=== PATIENT | female | born 1990 | race American Indian/Alaskan Native ===

== ENCOUNTER 2016-08-16 12:01 | Emergency (ER) | payer MEDICAID ==
[2016-08-16 12:48] VITALS: BP 115/75
[2016-08-16] MEDS ORDERED: TORADOL IM ONE (12:56)
[2016-08-16] MEDS ORDERED: FLEXERIL PO ONE (12:56)
--- NOTE | 2016-08-16 13:02 | Emergency Department Report ---
ED General Adult HPI - General Chief complaint: Extremity Problem,Nontraumatic Stated complaint: LT SHOULDER PAIN Time Seen by Provider: 08/16/16 12:51 Source: patient Mode of arrival: Ambulatory Limitations: No Limitations - History of Present Illness Initial comments: PT c/o L shoulder pain. PT states she can not think of a specific injury, but she does have two small children and she lifts/ carries them frequently. PT states her mother told her that her shoulder was dislocated. PT states the pain started gradually last night and was worse this am. PT states she took some Tylenol last night at 2230. PT states she does not know if this helped her pain because shortly after, she went to sleep. MD Complaint: L shoulder pain -: Gradual, days(s) (1) Location: upper extremity (L shoulder ) Severity scale (0 -10): 10 Quality: constant Consistency: constant Improves with: rest Worsens with: movement Associated Symptoms: denies other symptoms. denies: chest pain, fever/chills, headaches, nausea/vomiting, shortness of breath Treatments Prior to Arrival: none - Related Data Home Medications Medication Instructions Recorded Confirmed Last Taken Omeprazole [PriLOSEC] 20 mg PO BID 03/15/15 03/15/15 03/14/15 15:30 Previous Rx's Medication Instructions Recorded Last Taken Type Ferrous Sulfate [Feosol 325 MG tab] 325 mg PO BID #90 tablet 03/30/14 03/14/15 15:30 Rx Ondansetron [Zofran Odt] 4 mg PO Q8HR #10 tab.rapdis 02/13/15 03/15/15 08:00 Rx Diphenhydramine HCl [Benadryl 25 mg PO Q6HR PRN #30 tablet 03/15/15 Unknown Rx Allergy TAB] Loratadine [Claritin] 10 mg PO DAILY #30 tablet 03/15/15 Unknown Rx Ibuprofen [Motrin] 600 mg PO Q8H PRN #15 tablet 08/16/16 Unknown Rx methOCARBAMOL [Robaxin TAB] 500 mg PO Q6H PRN #15 tablet 08/16/16 Unknown Rx Allergies Allergy/AdvReac Type Severity Reaction Status Date / Time terbutaline sulfate AdvReac Vomiting Verified 03/15/15 10:03 [From Jacey] ED Review of Systems ROS: Stated complaint: LT SHOULDER PAIN Other details as noted in HPI Comment: All other systems reviewed and negative Constitutional: denies: chills, fever Respiratory: denies: shortness of breath Cardiovascular: denies: chest pain Gastrointestinal: denies: abdominal pain Genitourinary: denies: abnormal menses Musculoskeletal: as per HPI, joint swelling, myalgia Skin: denies: change in color Neurological: denies: weakness ED Past Medical Hx - Past Medical History Previous Medical History?: Yes Hx Hypertension: No Hx Congestive Heart Failure: No Hx Diabetes: No Hx Deep Vein Thrombosis: No Hx Renal Disease: No Hx Sickle Cell Disease: No Hx Seizures: No Hx Asthma: No Hx COPD: No Hx HIV: No Additional medical history: lupus - Surgical History Past Surgical History?: No - Social History Smoking Status: Current Every Day Smoker Substance Use Type: Alcohol - Medications Home Medications: Home Medications Medication Instructions Recorded Confirmed Last Taken Type Ferrous Sulfate [Feosol 325 MG tab] 325 mg PO BID #90 tablet 03/30/14 03/15/15 03/14/15 15:30 Rx Ondansetron [Zofran Odt] 4 mg PO Q8HR #10 tab.rapdis 02/13/15 03/15/15 03/15/15 08:00 Rx Diphenhydramine HCl [Benadryl 25 mg PO Q6HR PRN #30 tablet 03/15/15 Unknown Rx Allergy TAB] Loratadine [Claritin] 10 mg PO DAILY #30 tablet 03/15/15 Unknown Rx Omeprazole [PriLOSEC] 20 mg PO BID 03/15/15 03/15/15 03/14/15 15:30 History Ibuprofen [Motrin] 600 mg PO Q8H PRN #15 tablet 08/16/16 Unknown Rx methOCARBAMOL [Robaxin TAB] 500 mg PO Q6H PRN #15 tablet 08/16/16 Unknown Rx ED Physical Exam - General Limitations: No Limitations General appearance: alert, in no apparent distress - Head Head exam: Present: atraumatic, normocephalic - Eye Eye exam: Present: normal appearance, PERRL. Absent: conjunctival injection - ENT ENT exam: Present: normal exam - Neck Neck exam: Present: normal inspection, tenderness, full ROM, other (L trapezious tenderness ). Absent: lymphadenopathy - Respiratory Respiratory exam: Present: normal lung sounds bilaterally. Absent: respiratory distress, wheezes, rales, rhonchi, chest wall tenderness - Cardiovascular Cardiovascular Exam: Present: regular rate, normal rhythm, normal heart sounds - GI/Abdominal GI/Abdominal exam: Present: soft. Absent: tenderness - Extremities Exam Extremities exam: Present: normal inspection, tenderness, normal capillary refill. Absent: full ROM - Expanded Upper Extremity Exam Left Shoulder Exam: Present: normal inspection, tenderness. Absent: full ROM, swelling, ecchymosis, deformity, crepidus Upper Arm exam: Present: normal inspection, tenderness. Absent: swelling Elbow exam: Present: normal inspection, full ROM. Absent: tenderness Forearm Wrist exam: Present: normal inspection, full ROM Hand Wrist exam: Present: normal inspection, full ROM - Back Exam Back exam: Present: normal inspection, full ROM. Absent: tenderness, CVA tenderness (R), CVA tenderness (L), muscle spasm, paraspinal tenderness, vertebral tenderness - Neurological Exam Neurological exam: Present: alert, oriented X3, CN II-XII intact, normal gait - Psychiatric Psychiatric exam: Present: normal affect, normal mood - Skin Skin exam: Present: warm, dry, intact, normal color. Absent: rash, ecchymosis ED Course Vital Signs 08/16/16 12:42 Temperature 98.8 F Pulse Rate 88 Respiratory 18 Rate Blood Pressure 115/75 O2 Sat by Pulse 99 Oximetry - Reevaluation(s) Reevaluation #1: 08/16/16 14:15 PT aware of XR result. PT aware of plan of care. PT's Rom has increased after pain control. - Pulse Oximetry Interpretation Digit-Finger Initial Pulse Oximetry Readin Actions Taken: none ED Medical Decision Making - Lab Data Lab Results 08/16/16 Range/Units 13:05 Urine HCG, Qual Negative (Negative) - Radiology Data Radiology results: report reviewed XR shoulder, nap - Differential Diagnosis strain, tendonitis, brusitis Critical Care Time: No Critical care attestation.: If time is entered above; I have spent that time in minutes in the direct care of this critically ill patient, excluding procedure time. ED Disposition Clinical Impression: Muscle spasm Left shoulder pain Qualifiers: Chronicity: acute Qualified Code(s): M25.512 - Pain in left shoulder Disposition: DISCHARGED TO HOME OR SELFCARE Is pt being admited?: No Does the pt Need Aspirin: No Condition: Stable Instructions: Shoulder Sprain (ED) Additional Instructions: Do not wear sling longer than [address] or drink ETOH after Robaxin Prescriptions: Ibuprofen [Motrin] 600 mg PO Q8H PRN #15 tablet PRN Reason: Pain methOCARBAMOL [Robaxin TAB] 500 mg PO Q6H PRN #15 tablet PRN Reason: Muscle Spasm Referrals: PRIMARY CARE, [Primary Care Provider] - 3-5 Days Time of Disposition: 14:19
--- NOTE | 2016-08-16 13:59 | XRay Report ---
Left shoulder 3 views: History: Pain. Findings: No bony or articular abnormality. No fracture, dislocation or soft tissue calcification. Impression: Essentially negative left shoulder.
== END 2016-08-16 14:41 | disposition home or self-care (01) ==
LOC: ED 12:01
DX: M25.512 Pain in left shoulder (principal); M62.838 Other muscle spasm; F17.200 Nicotine dependence, unspecified, uncomplicated; Z88.8 Allergy status to other drugs, medicaments and biological substances
CPT/HCPCS: 73030; 81025; 96372; 99284; J1885

== ENCOUNTER 2016-12-08 08:39 | Emergency (ER) | payer MEDICAID ==
[2016-12-08 09:24] LABS: Basophils % (Auto) 1.2 % (0.0-1.8); Eosinophils % (Auto) 2.5 % (0.0-4.3); Hematocrit 33.5 % (30.3-42.9); Hemoglobin 10.6 gm/dl (10.1-14.3); Mean Corpuscular HGB Conc 32 % (30-34); Mean Corpuscular Volume 76 fl (79-97); Platelet Count 271 K/mm3 (140-440); Red Blood Count 4.39 M/mm3 (3.65-5.03); Red Cell Distribution Width 16.8 % (13.2-15.2); White Blood Count 4.8 K/mm3 (4.5-11.0)
[2016-12-08 09:31] LABS: Bacteria,Urine 1+ /HPF (Negative); Bilirubin,Urine NEG (Negative); Blood,Urine LG (Negative); Ketones,Urine NEG (Negative); Leukocyte Esterase,Urine TR (Negative); Mucus,Urine FEW /HPF; Nitrite,Urine NEG (Negative); Protein,Urine <15 mg/dL mg/dL (Negative); Urobilinogen,Urine < 2.0 mg/dL (<2.0)
[2016-12-08 09:33] LABS: Mean Corpuscular Hemoglobin 24 pg (28-32)
[2016-12-08 09:35] LABS: Alanine Aminotransferase 23 units/L (7-56); Albumin 3.9 g/dL (3.9-5); Alkaline Phosphatase 56 units/L (35-129); BUN/Creatinine Ratio 11.11; Bilirubin,Total < 0.20 mg/dL (0.1-1.2); Blood Urea Nitrogen 10 mg/dL (7-17); Calcium 9.4 mg/dL (8.4-10.2); Carbon Dioxide 24 mmol/L (22-30); Glucose 98 mg/dL (65-100); Total Protein 7.7 g/dL (6.3-8.2)
[2016-12-08 09:36] LABS: Anion Gap 17 mmol/L; Chloride 100.8 mmol/L (98-107); Potassium 4.3 mmol/L (3.6-5.0); Sodium 137 mmol/L (137-145)
--- NOTE | 2016-12-08 10:20 | Emergency Department Report ---
ED Female HPI - General Chief complaint: Vaginal Bleeding Stated complaint: 4-6 WKS PREG/BLEEDING Time Seen by Provider: 12/08/16 10:16 Source: patient Mode of arrival: Ambulatory Limitations: No Limitations - History of Present Illness Initial comments: Patient complains of generalized malaise over the past few days. She's had some vaginal spotting but no significant bleeding. She is not complaining of any abdominal pain or any symptoms. She is 6 right ear 0 with 3 live children. She states she is approximately 6 weeks . She has not been to an OB doctor yet. I have reviewed the patient's previous blood bank records. She has a positive. She is not a candidate for RhoGAM. Complaint: vaginal bleeding -: Gradual, days(s) Severity: mild, moderate Consistency: now resolved Improves with: none Worsens with: none Are you Now?: Yes Associated Symptoms: denies other symptoms (except spotting), vaginal bleeding - Related Data Home Medications Medication Instructions Recorded Confirmed Last Taken Omeprazole [PriLOSEC] 20 mg PO BID 03/15/15 03/15/15 03/14/15 15:30 Previous Rx's Medication Instructions Recorded Last Taken Type Ferrous Sulfate [Feosol 325 MG tab] 325 mg PO BID #90 tablet 03/30/14 03/14/15 15:30 Rx Ondansetron [Zofran Odt] 4 mg PO Q8HR #10 tab.rapdis 02/13/15 03/15/15 08:00 Rx Diphenhydramine HCl [Benadryl 25 mg PO Q6HR PRN #30 tablet 03/15/15 Unknown Rx Allergy TAB] Loratadine [Claritin] 10 mg PO DAILY #30 tablet 03/15/15 Unknown Rx Ibuprofen [Motrin] 600 mg PO Q8H PRN #15 tablet 08/16/16 Unknown Rx methOCARBAMOL [Robaxin TAB] 500 mg PO Q6H PRN #15 tablet 08/16/16 Unknown Rx HYDROcodone/APAP 5-325 [[place] 1 each PO Q4HR PRN #10 tablet 12/08/16 Unknown Rx 5/325] Allergies Allergy/AdvReac Type Severity Reaction Status Date / Time terbutaline sulfate AdvReac Vomiting Verified 03/15/15 10:03 [From Jacey] ED Review of Systems ROS: Stated complaint: 4-6 WKS PREG/BLEEDING Other details as noted in HPI Constitutional: malaise. denies: chills, fever Eyes: denies: eye pain, eye discharge, vision change ENT: denies: ear pain, throat pain Respiratory: denies: cough, shortness of breath, wheezing Cardiovascular: denies: chest pain, palpitations Endocrine: no symptoms reported Gastrointestinal: denies: abdominal pain, nausea, diarrhea Genitourinary: as per HPI, other. denies: urgency, dysuria, discharge Musculoskeletal: denies: back pain, joint swelling, arthralgia Skin: denies: rash, lesions Neurological: denies: headache, weakness, paresthesias Psychiatric: denies: anxiety, depression Hematological/Lymphatic: denies: easy bleeding, easy bruising ED Past Medical Hx - Past Medical History Previous Medical History?: No Hx Hypertension: No Hx Congestive Heart Failure: No Hx Diabetes: No Hx Deep Vein Thrombosis: No Hx Renal Disease: No Hx Sickle Cell Disease: No Hx Seizures: No Hx Asthma: No Hx COPD: No Hx HIV: No Additional medical history: lupus - Social History Smoking Status: Former Smoker Substance Use Type: None - Medications Home Medications: Home Medications Medication Instructions Recorded Confirmed Last Taken Type Ferrous Sulfate [Feosol 325 MG tab] 325 mg PO BID #90 tablet 03/30/14 03/15/15 03/14/15 15:30 Rx Ondansetron [Zofran Odt] 4 mg PO Q8HR #10 tab.rapdis 02/13/15 03/15/15 03/15/15 08:00 Rx Diphenhydramine HCl [Benadryl 25 mg PO Q6HR PRN #30 tablet 03/15/15 Unknown Rx Allergy TAB] Loratadine [Claritin] 10 mg PO DAILY #30 tablet 03/15/15 Unknown Rx Omeprazole [PriLOSEC] 20 mg PO BID 03/15/15 03/15/15 03/14/15 15:30 History Ibuprofen [Motrin] 600 mg PO Q8H PRN #15 tablet 08/16/16 Unknown Rx methOCARBAMOL [Robaxin TAB] 500 mg PO Q6H PRN #15 tablet 08/16/16 Unknown Rx HYDROcodone/APAP 5-325 [[place] 1 each PO Q4HR PRN #10 tablet 08/13/17 Unknown Rx 5/325] ED Physical Exam - General Limitations: No Limitations General appearance: alert, in no apparent distress - Head Head exam: Present: atraumatic, normocephalic - Eye Eye exam: Present: normal appearance, PERRL, EOMI. Absent: scleral icterus - ENT ENT exam: Present: mucous membranes moist - Neck Neck exam: Present: normal inspection - Respiratory Respiratory exam: Present: normal lung sounds bilaterally. Absent: respiratory distress - Cardiovascular Cardiovascular Exam: Present: regular rate, normal rhythm. Absent: systolic murmur, diastolic murmur, rubs, gallop - GI/Abdominal GI/Abdominal exam: Present: soft, normal bowel sounds. Absent: distended, tenderness, guarding, rebound, rigid - Extremities Exam Extremities exam: Present: normal inspection - Back Exam Back exam: Present: normal inspection - Neurological Exam Neurological exam: Present: alert, oriented X3, CN II-XII intact. Absent: motor sensory deficit - Psychiatric Psychiatric exam: Present: normal affect, normal mood - Skin Skin exam: Present: warm, dry, intact, normal color. Absent: rash ED Course Vital Signs 12/08/16 08:49 Temperature 98.1 F Pulse Rate 82 Respiratory 18 Rate Blood Pressure 117/79 O2 Sat by Pulse 100 Oximetry ED Medical Decision Making - Lab Data Result diagrams: 12/08/16 08:57 12/08/16 08:57 Laboratory Results - last 24 hr 12/08/16 12/08/16 12/08/16 08:57 08:57 08:57 WBC 4.8 RBC 4.39 Hgb 10.6 Hct 33.5 MCV 76 L MCH 24 L MCHC 32 RDW 16.8 H Plt Count 271 Lymph % (Auto) 43.8 H [place] % (Auto) 8.6 H Eos % (Auto) 2.5 Baso % (Auto) 1.2 Lymph # 2.1 [place] # 0.4 Eos # 0.1 Baso # 0.1 Seg Neutrophils % 43.9 Seg Neutrophils # 2.1 Sodium Potassium Chloride Carbon Dioxide Anion Gap BUN Creatinine Estimated GFR BUN/Creatinine Ratio Glucose Calcium Total Bilirubin AST ALT Alkaline Phosphatase Total Protein Albumin Albumin/Globulin Ratio HCG, Qual Positive HCG, Quant 1035 H Urine Color Urine Turbidity Urine pH Ur Specific [place] Urine Protein Urine Glucose (UA) Urine Ketones Urine Blood Urine Nitrite Urine Bilirubin Urine Urobilinogen Ur Leukocyte Esterase Urine WBC (Auto) Urine RBC (Auto) U Epithel Cells (Auto) Urine Bacteria (Auto) Urine Mucus 12/08/16 12/08/16 08:57 09:04 WBC RBC Hgb Hct MCV MCH MCHC RDW Plt Count Lymph % (Auto) [place] % (Auto) Eos % (Auto) Baso % (Auto) Lymph # [place] # Eos # Baso # Seg Neutrophils % Seg Neutrophils # Sodium 137 Potassium 4.3 Chloride 100.8 Carbon Dioxide 24 Anion Gap 17 BUN 10 Creatinine 0.9 Estimated GFR > 60 BUN/Creatinine Ratio 11.11 Glucose 98 Calcium 9.4 Total Bilirubin < 0.20 AST 33 ALT 23 Alkaline Phosphatase 56 Total Protein 7.7 Albumin 3.9 Albumin/Globulin Ratio 1.0 HCG, Qual HCG, Quant Urine Color Yellow Urine Turbidity Clear Urine pH 5.0 Ur Specific [place] 1.021 Urine Protein <15 mg/dl Urine Glucose (UA) Neg Urine Ketones Neg Urine Blood Lg Urine Nitrite Neg Urine Bilirubin Neg Urine Urobilinogen < 2.0 Ur Leukocyte Esterase Tr Urine WBC (Auto) 2.0 Urine RBC (Auto) 21.0 U Epithel Cells (Auto) 6.0 Urine Bacteria (Auto) 1+ Urine Mucus Few - Radiology Data interpreted by me: Dr. Serrano called the radiology report to me. Indicated a 5-6 week demise no other abnormal findings. Critical care attestation.: If time is entered above; I have spent that time in minutes in the direct care of this critically ill patient, excluding procedure time. ED Disposition Clinical Impression: demise Disposition: DC-01 TO HOME OR SELFCARE Is pt being admited?: No Does the pt Need Aspirin: No Condition: Stable Instructions: Spontaneous Miscarriage (ED) Additional Instructions: Usually, the uterus well empty itself. There will be additional bleeding and passage of the which did not develop. Sometimes it may be necessary to scrape out the uterus. However that is not common. Follow-up with OB physician. Rx as needed for pain. Return as needed any significant bleeding or pain or acute change or problem. If you do not already have an email designer I have referred due to one. Prescriptions: HYDROcodone/APAP 5-325 [[place] 5/325] 1 each PO Q4HR PRN #10 tablet PRN Reason: Pain Referrals: PRIMARY CARE,MD [Primary Care Provider] - 3-5 Days usual, [facility] [Other] - 2-3 Days ALEX CHAWLA MD [Staff Physician] - 3-5 Days Time of Disposition: 11:19
--- NOTE | 2016-12-08 10:52 | Ultrasound Report ---
Pelvic and transvaginal sonography: History: Vaginal bleeding. Findings: Uterus measures 9.5 x 5.2 x 6.5 cm. Single intrauterine gestational sac is noted. Gestational sac diameter is 7.7 mm corresponding to 6 weeks and 2 days of gestation. CRL of fetus is 4.9 mm corresponding to 5 weeks and 4 days of gestation. No cardiac activity is seen. Right ovary 2.6 x 2.4 x 2.7 cm. Complex cyst in the right ovary measures 2 cm. Left ovary 2.9-1.5 x 2.1 cm. No mass. Impression: Intrauterine demise. Complex cyst right ovary.
[2016-12-08 14:32] VITALS: BP 111/65
== END 2016-12-08 12:00 | disposition home or self-care (01) ==
LOC: ED 08:39
DX: O36.4XX0 Maternal care for intrauterine death, not applicable or unspecified (principal); Z3A.01 Less than 8 weeks gestation of pregnancy; Z87.891 Personal history of nicotine dependence; Z88.2 Allergy status to sulfonamides
CPT/HCPCS: 36415; 76801; 76817; 80053; 81001; 84702; 84703; 85025

== ENCOUNTER 2017-01-02 10:01 | Emergency (ER) | payer MEDICAID ==
[2017-01-02 11:25] VITALS: BP 106/75
--- NOTE | 2017-01-02 12:34 | Emergency Department Report ---
ED General Adult HPI - General Chief complaint: Medical Clearance Stated complaint: POSSIBLE Time Seen by Provider: 01/02/17 12:02 Source: patient Mode of arrival: Ambulatory Limitations: No Limitations - History of Present Illness Initial comments: pt presents for positive home test, pt denies symptoms no fever no chills no abdominal pain no vaginal discharge, no concern for STI, LMP 1 month ago, has follow up appoint [facility] next week. Severity scale (0 -10): 0 - Related Data Home Medications Medication Instructions Recorded Confirmed Last Taken Omeprazole [PriLOSEC] 20 mg PO BID 03/15/15 03/15/15 03/14/15 15:30 Previous Rx's Medication Instructions Recorded Last Taken Type Ferrous Sulfate [Feosol 325 MG tab] 325 mg PO BID #90 tablet 03/30/14 03/14/15 15:30 Rx Ondansetron [Zofran Odt] 4 mg PO Q8HR #10 tab.rapdis 02/13/15 03/15/15 08:00 Rx Diphenhydramine HCl [Benadryl 25 mg PO Q6HR PRN #30 tablet 03/15/15 Unknown Rx Allergy TAB] Loratadine [Claritin] 10 mg PO DAILY #30 tablet 03/15/15 Unknown Rx Ibuprofen [Motrin] 600 mg PO Q8H PRN #15 tablet 08/16/16 Unknown Rx methOCARBAMOL [Robaxin TAB] 500 mg PO Q6H PRN #15 tablet 08/16/16 Unknown Rx HYDROcodone/APAP 5-325 [[place] 1 each PO Q4HR PRN #10 tablet 12/08/16 Unknown Rx 5/325] Allergies Allergy/AdvReac Type Severity Reaction Status Date / Time terbutaline sulfate AdvReac Vomiting Verified 03/15/15 10:03 [From Jacey] ED Review of Systems ROS: Stated complaint: POSSIBLE Other details as noted in HPI Constitutional: denies: chills, fever Eyes: denies: eye pain, eye discharge, vision change ENT: denies: ear pain, throat pain Respiratory: denies: cough, shortness of breath, wheezing Cardiovascular: denies: chest pain, palpitations Endocrine: no symptoms reported Gastrointestinal: denies: abdominal pain, nausea, diarrhea Genitourinary: denies: urgency, dysuria, discharge Musculoskeletal: denies: back pain, joint swelling, arthralgia Skin: denies: rash, lesions Neurological: denies: headache, weakness, paresthesias Psychiatric: denies: anxiety, depression Hematological/Lymphatic: denies: easy bleeding, easy bruising ED Past Medical Hx - Past Medical History Previous Medical History?: Yes Hx Hypertension: No Hx Congestive Heart Failure: No Hx Diabetes: No Hx Deep Vein Thrombosis: No Hx Renal Disease: No Hx Sickle Cell Disease: No Hx Seizures: No Hx Asthma: No Hx COPD: No Hx HIV: No Additional medical history: lupus dx 2015 - Surgical History Past Surgical History?: No - Social History Smoking Status: Current Some Day Smoker Substance Use Type: None, Alcohol - Medications Home Medications: Home Medications Medication Instructions Recorded Confirmed Last Taken Type Ferrous Sulfate [Feosol 325 MG tab] 325 mg PO BID #90 tablet 03/30/14 03/15/15 03/14/15 15:30 Rx Ondansetron [Zofran Odt] 4 mg PO Q8HR #10 tab.rapdis 02/13/15 03/15/15 03/15/15 08:00 Rx Diphenhydramine HCl [Benadryl 25 mg PO Q6HR PRN #30 tablet 03/15/15 Unknown Rx Allergy TAB] Loratadine [Claritin] 10 mg PO DAILY #30 tablet 03/15/15 Unknown Rx Omeprazole [PriLOSEC] 20 mg PO BID 03/15/15 03/15/15 03/14/15 15:30 History Ibuprofen [Motrin] 600 mg PO Q8H PRN #15 tablet 08/16/16 Unknown Rx methOCARBAMOL [Robaxin TAB] 500 mg PO Q6H PRN #15 tablet 08/16/16 Unknown Rx HYDROcodone/APAP 5-325 [[place] 1 each PO Q4HR PRN #10 tablet 12/08/16 Unknown Rx 5/325] ED Physical Exam - General Limitations: No Limitations General appearance: alert - Head Head exam: Present: atraumatic, normocephalic - Eye Eye exam: Present: normal appearance - ENT ENT exam: Present: mucous membranes moist - Neck Neck exam: Present: normal inspection - Respiratory Respiratory exam: Present: normal lung sounds bilaterally. Absent: respiratory distress - Cardiovascular Cardiovascular Exam: Present: regular rate, normal rhythm. Absent: systolic murmur, diastolic murmur, rubs, gallop - GI/Abdominal GI/Abdominal exam: Present: soft, normal bowel sounds - Rectal Rectal exam: Present: deferred - Extremities Exam Extremities exam: Present: normal inspection - Back Exam Back exam: Present: normal inspection - Neurological Exam Neurological exam: Present: alert, oriented X3 - Psychiatric Psychiatric exam: Present: normal affect, normal mood - Skin Skin exam: Present: warm, dry, intact, normal color. Absent: rash ED Course Vital Signs 01/02/17 11:19 Temperature 98.6 F Pulse Rate 74 Respiratory 16 Rate Blood Pressure 106/75 O2 Sat by Pulse 100 Oximetry ED Medical Decision Making - Lab Data Laboratory Tests 01/02/17 11:41 HCG, Qual Positive - Medical Decision Making pt presents for positive home test, pt denies symptoms no fever no chills no abdominal pain no vaginal discharge, no concern for STI, LMP 1 month ago, has follow up appoint [facility] Vandana Lee [employer] next week, exam: pt is a/ o x 3 with nad , defers vaginal exam , STI screening, pt defers to [employer] will see in 3 days. plan: dc to self as pt is a/o x 3 and demonstrates decision making capacity, will follow up as scheduled with manager development. Critical care attestation.: If time is entered above; I have spent that time in minutes in the direct care of this critically ill patient, excluding procedure time. ED Disposition Clinical Impression: Positive urine test Disposition: DC-01 TO HOME OR SELFCARE Is pt being admited?: No Does the pt Need Aspirin: No Condition: Good Instructions: (ED) Additional Instructions: follow up with Robert TANNER as scheduled Referrals: PRIMARY CARE, [Primary Care Provider] - 3-5 Days Forms: Work/School Release Form(ED) Time of Disposition: 12:37
== END 2017-01-02 13:03 | disposition home or self-care (01) ==
LOC: ED 10:01
DX: Z32.01 Encounter for pregnancy test, result positive (principal); Z88.2 Allergy status to sulfonamides; Z72.0 Tobacco use
CPT/HCPCS: 36415; 84703; 99282

== ENCOUNTER 2017-01-17 14:38 | Emergency (ER) | payer SELFPAY ==
[2017-01-17 14:52] VITALS: BP 91/53
[2017-01-17 15:10] LABS: Eosinophils % (Auto) 1.9 % (0.0-4.3); Hematocrit 31.5 % (30.3-42.9); Hemoglobin 10.3 gm/dl (10.1-14.3); Mean Corpuscular HGB Conc 33 % (30-34); Mean Corpuscular Volume 76 fl (79-97); Platelet Count 247 K/mm3 (140-440); Red Blood Count 4.14 M/mm3 (3.65-5.03); Red Cell Distribution Width 16.6 % (13.2-15.2); White Blood Count 4.2 K/mm3 (4.5-11.0)
[2017-01-17 15:11] LABS: Mean Corpuscular Hemoglobin 25 pg (28-32)
--- NOTE | 2017-01-17 18:57 | Emergency Department Report ---
ED Female HPI - General Chief complaint: Vaginal Bleeding Stated complaint: POSS MISSCARRIAGE WKS? Time Seen by Provider: 01/17/17 17:11 Source: patient, EMS Mode of arrival: Stretcher Limitations: No Limitations - History of Present Illness Initial comments: Patient states her last normal period was in September. She fell that she was in October. She had a miscarriage in November. She is now and started bleeding again today. She states that she has 3 live children. She's had at least these 2 other S carriages but states every time I get "this happens". Complaint: vaginal bleeding -: Gradual Severity: mild, moderate Consistency: now resolved Improves with: none Worsens with: none Are you Now?: Yes Associated Symptoms: denies other symptoms - Related Data Home Medications Medication Instructions Recorded Confirmed Last Taken Omeprazole [PriLOSEC] 20 mg PO BID 03/15/15 03/15/15 03/14/15 15:30 Previous Rx's Medication Instructions Recorded Last Taken Type Ferrous Sulfate [Feosol 325 MG tab] 325 mg PO BID #90 tablet 03/30/14 03/14/15 15:30 Rx Ondansetron [Zofran Odt] 4 mg PO Q8HR #10 tab.rapdis 02/13/15 03/15/15 08:00 Rx Diphenhydramine HCl [Benadryl 25 mg PO Q6HR PRN #30 tablet 03/15/15 Unknown Rx Allergy TAB] Loratadine [Claritin] 10 mg PO DAILY #30 tablet 03/15/15 Unknown Rx Ibuprofen [Motrin] 600 mg PO Q8H PRN #15 tablet 08/16/16 Unknown Rx methOCARBAMOL [Robaxin TAB] 500 mg PO Q6H PRN #15 tablet 08/16/16 Unknown Rx HYDROcodone/APAP 5-325 [[place] 1 each PO Q4HR PRN #10 tablet 12/08/16 Unknown Rx 5/325] Pnv with Ca,No.72/Iron,Carb/FA 1 each PO QDAY #30 tablet 01/17/17 Unknown Rx [ Plus Iron Tablet] Allergies Allergy/AdvReac Type Severity Reaction Status Date / Time tramadol Allergy Shortness Verified 01/17/17 14:42 of Breath terbutaline sulfate AdvReac Vomiting Verified 03/15/15 10:03 [From [facility]] ED Review of Systems ROS: Stated complaint: POSS MISSCARRIAGE WKS? Other details as noted in HPI Constitutional: denies: chills, fever Eyes: denies: eye pain, eye discharge, vision change ENT: denies: ear pain, throat pain Respiratory: denies: cough, shortness of breath, wheezing Cardiovascular: denies: chest pain, palpitations Endocrine: no symptoms reported Gastrointestinal: denies: abdominal pain, nausea, diarrhea Genitourinary: as per HPI, abnormal menses. denies: urgency, dysuria, discharge Musculoskeletal: denies: back pain, joint swelling, arthralgia Skin: denies: rash, lesions Neurological: denies: headache, weakness, paresthesias Psychiatric: denies: anxiety, depression Hematological/Lymphatic: denies: easy bleeding, easy bruising ED Past Medical Hx - Past Medical History Hx Hypertension: No Hx Congestive Heart Failure: No Hx Diabetes: No Hx Deep Vein Thrombosis: No Hx Renal Disease: No Hx Sickle Cell Disease: No Hx Seizures: No Hx Asthma: No Hx COPD: No Hx HIV: No Additional medical history: lupus dx 2015 - Social History Smoking Status: Current Every Day Smoker Substance Use Type: None - Medications Home Medications: Home Medications Medication Instructions Recorded Confirmed Last Taken Type Ferrous Sulfate [Feosol 325 MG tab] 325 mg PO BID #90 tablet 03/30/14 03/15/15 03/14/15 15:30 Rx Ondansetron [Zofran Odt] 4 mg PO Q8HR #10 tab.rapdis 02/13/15 03/15/15 03/15/15 08:00 Rx Diphenhydramine HCl [Benadryl 25 mg PO Q6HR PRN #30 tablet 03/15/15 Unknown Rx Allergy TAB] Loratadine [Claritin] 10 mg PO DAILY #30 tablet 03/15/15 Unknown Rx Omeprazole [PriLOSEC] 20 mg PO BID 03/15/15 03/15/15 03/14/15 15:30 History Ibuprofen [Motrin] 600 mg PO Q8H PRN #15 tablet 08/16/16 Unknown Rx methOCARBAMOL [Robaxin TAB] 500 mg PO Q6H PRN #15 tablet 08/16/16 Unknown Rx HYDROcodone/APAP 5-325 [[place] 1 each PO Q4HR PRN #10 tablet 12/08/16 Unknown Rx 5/325] Pnv with Ca,No.72/Iron,Carb/FA 1 each PO QDAY #30 tablet 01/17/17 Unknown Rx [ Plus Iron Tablet] ED Physical Exam - General Limitations: No Limitations General appearance: alert, in no apparent distress - Head Head exam: Present: atraumatic, normocephalic - Eye Eye exam: Present: normal appearance. Absent: scleral icterus - ENT ENT exam: Present: mucous membranes moist - Neck Neck exam: Present: normal inspection. Absent: tenderness, meningismus - Respiratory Respiratory exam: Present: normal lung sounds bilaterally. Absent: respiratory distress - Cardiovascular Cardiovascular Exam: Present: regular rate, normal rhythm. Absent: systolic murmur, diastolic murmur, rubs, gallop - GI/Abdominal GI/Abdominal exam: Present: soft, normal bowel sounds. Absent: distended, tenderness, guarding, rebound, rigid - Extremities Exam Extremities exam: Present: normal inspection - Back Exam Back exam: Present: normal inspection - Neurological Exam Neurological exam: Present: alert, oriented X3, CN II-XII intact. Absent: motor sensory deficit - Psychiatric Psychiatric exam: Present: normal affect, normal mood - Skin Skin exam: Present: warm, dry, intact, normal color. Absent: rash ED Course Vital Signs 01/17/17 01/17/17 14:42 18:34 Temperature 98.2 F Pulse Rate 78 Respiratory 18 16 Rate Blood Pressure 91/53 O2 Sat by Pulse 99 Oximetry - Reevaluation(s) Reevaluation #1: Blood type is A+. Patient informed of the need for OB follow-up. 01/17/17 19:37 ED Medical Decision Making - Lab Data Result diagrams: 01/17/17 14:54 - Radiology Data interpreted by me: Six-week intrauterine heart rate was 98 with small subchorionic bleed Critical care attestation.: If time is entered above; I have spent that time in minutes in the direct care of this critically ill patient, excluding procedure time. ED Disposition Clinical Impression: Threatened miscarriage Anemia Qualifiers: Anemia type: iron deficiency Iron deficiency anemia type: unspecified iron deficiency Qualified Code(s): D50.9 - Iron deficiency anemia, unspecified Disposition: DC-01 TO HOME OR SELFCARE Is pt being admited?: No Does the pt Need Aspirin: No Condition: Stable Instructions: Threatened Miscarriage (ED), Iron Rich Diet (ED), Anemia (ED) Additional Instructions: Follow-up with OB doctor. Return any acute change or problems. Prescriptions: Pnv with Ca,No.72/Iron,Carb/FA [ Plus Iron Tablet] 1 each PO QDAY #30 tablet Referrals: PRIMARY CAREMD [Primary Care Provider] - 3-5 Days KT MCLEAN MD [Staff Physician] - 3-5 Days Time of Disposition: 19:39
--- NOTE | 2017-01-17 20:05 | Ultrasound Report ---
FINAL REPORT EXAM: US OB TRANSVAGINAL HISTORY: preganant, bleeding TECHNIQUE: Ultrasound obstetrical transvaginal PRIORS: None. FINDINGS: There is gestational sac present within the uterus. Mean sac diameter 1.4 centimeters There is pole present with crown-rump length of 2.0 millimeters. Estimated gestational age 6 weeks 0 days with estimated date of delivery September 12, 2017 A yolk sac is identified Minimal free fluid noted in the cul-de-sac Adjacent to the gestational sac there is a hypoechoic focus 3.7 x 1.0 x 3.8 centimeters consistent with a large subchorionic hemorrhage cardiac activity present with heart rate of 90 beats per minute Right ovary is 4.0 x 2.5 x 2.7 centimeters. 2.2 centimeter right ovarian cyst is present. Left ovary is 3.4 x 1.5 x 1.5 centimeters. No abnormal adnexal mass identified IMPRESSION: Single live intrauterine gestation estimated at 6 weeks 0 days Large subchorionic hemorrhage identified
--- NOTE | 2017-01-17 20:06 | Ultrasound Report ---
FINAL REPORT EXAM: US OB \T\lt; = 14 WEEKS FETUS HISTORY: preganant, bleeding TECHNIQUE: Ultrasound obstetrical transabdominal PRIORS: None. FINDINGS: There is gestational sac present within the uterus. Mean sac diameter 1.4 centimeters There is pole present with crown-rump length of 2.0 millimeters. Estimated gestational age 6 weeks 0 days with estimated date of delivery September 12, 2017 A yolk sac is identified Minimal free fluid noted in the cul-de-sac Adjacent to the gestational sac there is a hypoechoic focus 3.7 x 1.0 x 3.8 centimeters consistent with a large subchorionic hemorrhage cardiac activity present with heart rate of 90 beats per minute Right ovary is 4.0 x 2.5 x 2.7 centimeters. 2.2 centimeter right ovarian cyst is present. Left ovary is 3.4 x 1.5 x 1.5 centimeters. No abnormal adnexal mass identified IMPRESSION: Single live intrauterine gestation estimated at 6 weeks 0 days Large subchorionic hemorrhage identified
== END 2017-01-17 19:55 | disposition home or self-care (01) ==
LOC: ED 14:38
DX: O20.0 Threatened abortion (principal); D50.9 Iron deficiency anemia, unspecified; Z3A.01 Less than 8 weeks gestation of pregnancy; F17.200 Nicotine dependence, unspecified, uncomplicated
CPT/HCPCS: 36415; 76801; 76817; 84702; 85025; 86850; 86900; 86901

== ENCOUNTER 2017-02-24 13:17 | Emergency (ER) | payer OTHER, MEDICAID ==
[2017-02-24 14:07] VITALS: BP 107/76
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
[2017-02-24 16:57] LABS: Bilirubin,Urine NEG (Negative); Blood,Urine NEG (Negative); Ketones,Urine NEG (Negative); Leukocyte Esterase,Urine SM (Negative); Mucus,Urine FEW /HPF; Nitrite,Urine NEG (Negative); Protein,Urine <15 mg/dL mg/dL (Negative); Urobilinogen,Urine < 2.0 mg/dL (<2.0)
== END 2017-02-24 17:32 | disposition home or self-care (01) ==
LOC: ED 13:17
DX: O9A.211 Injury, poisoning and certain other consequences of external causes complicating pregnancy, first trimester (principal); S39.012A Strain of muscle, fascia and tendon of lower back, initial encounter; O23.41 Unspecified infection of urinary tract in pregnancy, first trimester; O41.8X10 Other specified disorders of amniotic fluid and membranes, first trimester, not applicable or unspecified; O46.8X1 Other antepartum hemorrhage, first trimester; Z3A.11 11 weeks gestation of pregnancy; Z87.891 Personal history of nicotine dependence; Z88.8 Allergy status to other drugs, medicaments and biological substances; V89.2XXA Person injured in unspecified motor-vehicle accident, traffic, initial encounter; Y93.89 Activity, other specified; Y99.8 Other external cause status; Y92.89 Other specified places as the place of occurrence of the external cause
CPT/HCPCS: 76801; 76817; 81001

== ENCOUNTER 2017-03-10 18:45 | Emergency (ER) | payer MEDICAID, OTHER ==
[2017-03-10 19:51] LABS: Hematocrit 35.4 % (30.3-42.9); Hemoglobin 11.2 gm/dl (10.1-14.3); Mean Corpuscular HGB Conc 32 % (30-34); Mean Corpuscular Volume 82 fl (79-97); Platelet Count 237 K/mm3 (140-440); Red Blood Count 4.32 M/mm3 (3.65-5.03); Red Cell Distribution Width 17.9 % (13.2-15.2); White Blood Count 8.8 K/mm3 (4.5-11.0)
[2017-03-10 19:59] LABS: Anion Gap 16 mmol/L; BUN/Creatinine Ratio 12; Blood Urea Nitrogen 7 mg/dL (7-17); Calcium 8.9 mg/dL (8.4-10.2); Carbon Dioxide 24 mmol/L (22-30); Chloride 99.6 mmol/L (98-107); Glucose 82 mg/dL (65-100); Potassium 3.7 mmol/L (3.6-5.0); Sodium 136 mmol/L (137-145)
[2017-03-10 20:05] LABS: Mean Corpuscular Hemoglobin 26 pg (28-32)
[2017-03-10] MEDS ORDERED: SUBLIMAZE IV ONE (20:26)
[2017-03-10] MEDS ORDERED: ZOFRAN IV ONE (20:26)
[2017-03-10] MEDS ORDERED: NACL 0.9% 1000 ML 1,000 ML IV ONE (20:27)
--- NOTE | 2017-03-10 20:31 | Emergency Department Report ---
ED Headache HPI - General Chief Complaint: Headache Stated Complaint: VOMITING PREG Time Seen by Provider: 03/10/17 20:20 Source: patient - History of Present Illness Initial Comments: John is 27 years old female with history of migraine, she is 15 weeks , coming with headache started this morning, similar to previous episodes, associated with nausea and vomiting, patient denied any fever, shortness of breath, stiff neck or other complaints. She also denied vaginal bleeding, vaginal discharge or abdominal pain. Quality: moderate Head Injury Location: global Recent Head Trauma: no recent headache/trauma, frequent headaches Associated Symptoms: nausea/vomiting. denies: denies symptoms, confusion, fatigue, facial pain, fever/chills, flushing, loss of consciousness, nasal congestion, nasal drainage, numbness in legs/feet, rash, seizures, sinus infection, stiff neck, vision changes, weakness, other Allergies/Adverse Reactions: Allergies tramadol Allergy (Verified 01/17/17 14:42) Shortness of Breath terbutaline sulfate [From Brethine] Adverse Reaction (Verified 03/15/15 10:03) Vomiting Home Medications: Ambulatory Orders Ferrous Sulfate [Feosol 325 MG tab] 325 mg PO BID #90 tablet 03/30/14 Ondansetron [Zofran Odt] 4 mg PO Q8HR #10 tab.rapdis 02/13/15 Diphenhydramine HCl [Benadryl Allergy TAB] 25 mg PO Q6HR PRN #30 tablet Loratadine [Claritin] 10 mg PO DAILY #30 tablet 03/15/15 Omeprazole [PriLOSEC] 20 mg PO BID 03/15/15 Ibuprofen [Motrin] 600 mg PO Q8H PRN #15 tablet 08/16/16 methOCARBAMOL [Robaxin TAB] 500 mg PO Q6H PRN #15 tablet 08/16/16 HYDROcodone/APAP 5-325 [[place] 5/325] 1 each PO Q4HR PRN #10 tablet 12/08/16 Pnv,Calcium 72/Iron,Carb/Folic [ Plus Iron Tablet] 1 each PO QDAY #30 tablet 01/17/17 Cyclobenzaprine [Flexeril] 10 mg PO TID PRN #15 tablet 02/24/17 Nitrofurantoin [place]/M-Cryst [Macrobid CAP] 100 mg PO Q12HR #14 capsule 02/24/17 ED Review of Systems ROS: Stated complaint: VOMITING PREG Other details as noted in HPI Comment: All other systems reviewed and negative Constitutional: denies: chills, fever Respiratory: denies: cough, orthopnea, shortness of breath, SOB with exertion, SOB at rest, wheezing Cardiovascular: denies: chest pain, palpitations Gastrointestinal: nausea, vomiting. denies: abdominal pain, diarrhea, constipation, hematemesis, melena, hematochezia Genitourinary: denies: urgency, dysuria, frequency, hematuria Neurological: headache. denies: weakness, numbness, paresthesias, confusion ED Past Medical Hx - Past Medical History Previous Medical History?: Yes Hx Hypertension: No Hx Congestive Heart Failure: No Hx Diabetes: No Hx Deep Vein Thrombosis: No Hx Renal Disease: No Hx Sickle Cell Disease: No Hx Seizures: No Hx Asthma: No Hx COPD: No Hx HIV: No Additional medical history: lupus dx 2015 - Surgical History Past Surgical History?: No - Social History Smoking Status: Former Smoker Substance Use Type: None - Medications Home Medications: Home Medications Medication Instructions Recorded Confirmed Last Taken Type Ferrous Sulfate [Feosol 325 MG tab] 325 mg PO BID #90 tablet 03/30/14 03/15/15 03/14/15 15:30 Rx Ondansetron [Zofran Odt] 4 mg PO Q8HR #10 tab.rapdis 02/13/15 03/15/15 03/15/15 08:00 Rx Diphenhydramine HCl [Benadryl 25 mg PO Q6HR PRN #30 tablet 03/15/15 Unknown Rx Allergy TAB] Loratadine [Claritin] 10 mg PO DAILY #30 tablet 03/15/15 Unknown Rx Omeprazole [PriLOSEC] 20 mg PO BID 03/15/15 03/15/15 03/14/15 15:30 History Ibuprofen [Motrin] 600 mg PO Q8H PRN #15 tablet 08/16/16 Unknown Rx methOCARBAMOL [Robaxin TAB] 500 mg PO Q6H PRN #15 tablet 08/16/16 Unknown Rx HYDROcodone/APAP 5-325 [[place] 1 each PO Q4HR PRN #10 tablet 12/08/16 Unknown Rx 5/325] Pnv,Calcium 72/Iron,Carb/Folic 1 each PO QDAY #30 tablet 01/17/17 Unknown Rx [ Plus Iron Tablet] Cyclobenzaprine [Flexeril] 10 mg PO TID PRN #15 tablet 02/24/17 Unknown Rx Nitrofurantoin [place]/M-Cryst 100 mg PO Q12HR #14 capsule 02/24/17 Unknown Rx [Macrobid CAP] ED Physical Exam - General Limitations: No Limitations General appearance: alert, in no apparent distress - Head Head exam: Present: atraumatic, normocephalic, normal inspection - Eye Eye exam: Present: normal appearance, PERRL Pupils: Present: normal accommodation - ENT ENT exam: Present: normal exam, normal orophraynx, mucous membranes dry, TM's normal bilaterally, normal external ear exam - Neck Neck exam: Present: normal inspection, full ROM. Absent: tenderness, meningismus, lymphadenopathy, thyromegaly - Respiratory Respiratory exam: Present: normal lung sounds bilaterally - Cardiovascular Cardiovascular Exam: Present: regular rate, normal rhythm, normal heart sounds - GI/Abdominal GI/Abdominal exam: Present: soft, normal bowel sounds, organomegaly (gravid uterus). Absent: distended, tenderness, guarding, rebound, rigid, mass, bruit, pulsatile mass, hernia - Extremities Exam Extremities exam: Present: normal inspection. Absent: tenderness, normal capillary refill, pedal edema - Back Exam Back exam: Present: normal inspection. Absent: CVA tenderness (R), CVA tenderness (L) - Neurological Exam Neurological exam: Present: alert, oriented X3, CN II-XII intact, normal gait, reflexes normal. Absent: motor sensory deficit - Skin Skin exam: Present: warm, intact, normal color ED Course Vital Signs 03/10/17 03/10/17 03/10/17 19:16 20:56 20:58 Temperature 98.2 F 98.5 F Pulse Rate 80 73 Respiratory 18 14 14 Rate Blood Pressure 121/77 Blood Pressure 119/78 [Right] O2 Sat by Pulse 100 100 100 Oximetry - Reevaluation(s) Reevaluation #1: 03/10/17 22:41 Patient stated that she is feeling much better next is NO more vomiting. ED Medical Decision Making - Lab Data Result diagrams: 03/10/17 19:38 03/10/17 19:38 Critical care attestation.: If time is entered above; I have spent that time in minutes in the direct care of this critically ill patient, excluding procedure time. ED Disposition Clinical Impression: Headache, Vomiting Disposition: DC-01 TO HOME OR SELFCARE Is pt being admited?: No Condition: Stable Instructions: Acute Headache (ED), Acute Nausea and Vomiting (ED) Referrals: PRIMARY CARE,MD [Primary Care Provider] - 3-5 Days
[2017-03-10 20:58] VITALS: BP 119/78
[2017-03-10 21:06] LABS: Bilirubin,Urine NEG (Negative); Blood,Urine NEG (Negative); Ketones,Urine NEG (Negative); Leukocyte Esterase,Urine TR (Negative); Mucus,Urine FEW /HPF; Nitrite,Urine NEG (Negative); Protein,Urine <15 mg/dL mg/dL (Negative); RBC,Urine < 1.0 /HPF (0.0-6.0); Urobilinogen,Urine < 2.0 mg/dL (<2.0)
== END 2017-03-10 22:51 | disposition home or self-care (01) ==
LOC: ED 18:45
DX: O26.892 Other specified pregnancy related conditions, second trimester (principal); O21.0 Mild hyperemesis gravidarum; R51 Headache; Z3A.15 15 weeks gestation of pregnancy
CPT/HCPCS: 36415; 80048; 81001; 84702; 85027; 96361; 96374; 96375; 99283; J2405; J3010; J7030

== ENCOUNTER 2017-11-15 09:14 | Emergency (ER) | payer MEDICAID ==
[2017-11-15 09:20] VITALS: BP 115/67
[2017-11-15] MEDS ORDERED: NACL 0.9% 1000 ML 1,000 ML IV ONE (09:21)
[2017-11-15] MEDS ORDERED: MORPHINE IM ONE (09:52)
[2017-11-15] MEDS ORDERED: ZOFRAN IM ONE (09:52)
--- NOTE | 2017-11-15 09:56 | Emergency Department Report ---
ED Female HPI - General Chief complaint: Abdominal Pain Stated complaint: ABDOMINAL PAIN Time Seen by Provider: 11/15/17 09:46 Source: patient, EMS Mode of arrival: Ambulatory Limitations: No Limitations - History of Present Illness Initial comments: Patient is 27 years old female 5 para 4 was 1 miscarriage. Patient had a normal spontaneous vaginal delivery 3 months ago in [place]. Patient stated that she was doing well until one month ago when she started having a pelvic pain that radiated down to her inner thigh. Patient stated that she still have some bleeding but it is less than used to be.. Patient denied any fever, nausea or vomiting. No urinary symptoms. MD Complaint: vaginal bleeding, pelvic pain - Related Data Home Medications Medication Instructions Recorded Confirmed Last Taken Omeprazole [PriLOSEC] 20 mg PO BID 03/15/15 03/15/15 03/14/15 15:30 Previous Rx's Medication Instructions Recorded Last Taken Type Ferrous Sulfate [Feosol 325 MG tab] 325 mg PO BID #90 tablet 03/30/14 03/14/15 15:30 Rx Ondansetron [Zofran Odt] 4 mg PO Q8HR #10 tab.rapdis 02/13/15 03/15/15 08:00 Rx Diphenhydramine HCl [Benadryl 25 mg PO Q6HR PRN #30 tablet 03/15/15 Unknown Rx Allergy TAB] Loratadine [Claritin] 10 mg PO DAILY #30 tablet 03/15/15 Unknown Rx Ibuprofen [Motrin] 600 mg PO Q8H PRN #15 tablet 08/16/16 Unknown Rx methOCARBAMOL [Robaxin TAB] 500 mg PO Q6H PRN #15 tablet 08/16/16 Unknown Rx HYDROcodone/APAP 5-325 [[place] 1 each PO Q4HR PRN #10 tablet 12/08/16 Unknown Rx 5/325] Pnv,Calcium 72/Iron,Carb/Folic 1 each PO QDAY #30 tablet 01/17/17 Unknown Rx [ Plus Iron Tablet] Cyclobenzaprine [Flexeril] 10 mg PO TID PRN #15 tablet 02/24/17 Unknown Rx Nitrofurantoin [place]/M-Cryst 100 mg PO Q12HR #14 capsule 02/24/17 Unknown Rx [Macrobid CAP] Acetaminophen/Codeine [Tylenol 1 tab PO Q6H PRN #14 tab 03/10/17 Unknown Rx /Codeine # 3 tab] Ondansetron [Zofran Odt] 4 mg PO Q8HR PRN #14 tab.rapdis 03/10/17 Unknown Rx Allergies Allergy/AdvReac Type Severity Reaction Status Date / Time tramadol Allergy Shortness Verified 11/15/17 09:15 of Breath terbutaline sulfate AdvReac Vomiting Verified 11/15/17 09:15 [From Brethine] ED Review of Systems ROS: Stated complaint: ABDOMINAL PAIN Other details as noted in HPI Comment: All other systems reviewed and negative Respiratory: denies: cough, shortness of breath, SOB with exertion Cardiovascular: denies: chest pain Gastrointestinal: abdominal pain. denies: nausea, vomiting, diarrhea, constipation, hematemesis, hematochezia Genitourinary: denies: urgency, dysuria, frequency, hematuria Neurological: denies: headache ED Past Medical Hx - Past Medical History Hx Hypertension: No Hx Congestive Heart Failure: No Hx Diabetes: No Hx Deep Vein Thrombosis: No Hx Renal Disease: No Hx Sickle Cell Disease: No Hx Seizures: No Hx Asthma: No Hx COPD: No Hx HIV: No Additional medical history: lupus dx 2015 - Social History Smoking Status: Current Every Day Smoker Substance Use Type: Alcohol - Medications Home Medications: Home Medications Medication Instructions Recorded Confirmed Last Taken Type Ferrous Sulfate [Feosol 325 MG tab] 325 mg PO BID #90 tablet 03/30/14 03/15/15 03/14/15 15:30 Rx Ondansetron [Zofran Odt] 4 mg PO Q8HR #10 tab.rapdis 02/13/15 03/15/15 03/15/15 08:00 Rx Diphenhydramine HCl [Benadryl 25 mg PO Q6HR PRN #30 tablet 03/15/15 Unknown Rx Allergy TAB] Loratadine [Claritin] 10 mg PO DAILY #30 tablet 03/15/15 Unknown Rx Omeprazole [PriLOSEC] 20 mg PO BID 03/15/15 03/15/15 03/14/15 15:30 History Ibuprofen [Motrin] 600 mg PO Q8H PRN #15 tablet 08/16/16 Unknown Rx methOCARBAMOL [Robaxin TAB] 500 mg PO Q6H PRN #15 tablet 08/16/16 Unknown Rx HYDROcodone/APAP 5-325 [[place] 1 each PO Q4HR PRN #10 tablet 12/08/16 Unknown Rx 5/325] Pnv,Calcium 72/Iron,Carb/Folic 1 each PO QDAY #30 tablet 01/17/17 Unknown Rx [ Plus Iron Tablet] Cyclobenzaprine [Flexeril] 10 mg PO TID PRN #15 tablet 02/24/17 Unknown Rx Nitrofurantoin [place]/M-Cryst 100 mg PO Q12HR #14 capsule 02/24/17 Unknown Rx [Macrobid CAP] Acetaminophen/Codeine [Tylenol 1 tab PO Q6H PRN #14 tab 03/10/17 Unknown Rx /Codeine # 3 tab] Ondansetron [Zofran Odt] 4 mg PO Q8HR PRN #14 tab.rapdis 03/10/17 Unknown Rx ED Physical Exam - General Limitations: No Limitations General appearance: alert, in no apparent distress - Head Head exam: Present: atraumatic, normocephalic, normal inspection - Eye Eye exam: Present: normal appearance - ENT ENT exam: Present: normal exam, normal orophraynx, mucous membranes moist - Neck Neck exam: Present: normal inspection, full ROM. Absent: tenderness, meningismus, lymphadenopathy, thyromegaly - Respiratory Respiratory exam: Present: normal lung sounds bilaterally. Absent: respiratory distress, wheezes, rales, rhonchi, stridor, chest wall tenderness, accessory muscle use, decreased breath sounds, prolonged expiratory - Cardiovascular Cardiovascular Exam: Present: regular rate, normal rhythm, normal heart sounds - GI/Abdominal GI/Abdominal exam: Present: soft, normal bowel sounds. Absent: distended, tenderness, guarding, rebound, rigid, organomegaly, mass, bruit, pulsatile mass , hernia - Extremities Exam Extremities exam: Present: normal inspection, full ROM, normal capillary refill - Back Exam Back exam: Present: normal inspection, full ROM. Absent: tenderness, CVA tenderness (R), CVA tenderness (L), muscle spasm, paraspinal tenderness, vertebral tenderness - Neurological Exam Neurological exam: Present: alert, oriented X3, CN II-XII intact, normal gait, reflexes normal - Skin Skin exam: Present: warm, intact, normal color ED Course Vital Signs 11/15/17 11/15/17 11/15/17 09:15 10:03 10:21 Temperature 97.7 F Pulse Rate 81 Respiratory 18 20 22 Rate Blood Pressure 115/67 O2 Sat by Pulse 99 Oximetry ED Medical Decision Making - Lab Data Result diagrams: 11/15/17 09:39 11/15/17 09:39 - Radiology Data Radiology results: report reviewed Referring Physician: SHELLEY ROONEY Patient Name: PANCHO MARTINEZ Date of : 1990 Sex: Female Report Date: 2017-11-15 Report Status: Finalized Findings [facility] [address] [place] [address] Ultrasound Report Signed Patient: PANCHO MARTINEZ MR#: [id number] : 1990 Acct:[id number] Age/Sex: 27 / F ADM Date: 11/15/17 Loc: ED Attending Dr: Ordering Physician: SHELLEY ROONEY Date of Service: 11/15/17 Procedure(s): US transvaginal Accession Number(s): [id number] cc: SHELLEY ROONEY FINAL REPORT EXAM: US TRANSVAGINAL PELVIC ULTRASOUND, OVARIAN VASCULAR DOPPLER DUPLEX ASSESSMENT HISTORY: ABDOMINAL PAIN/ S/P 2 MONTHS AGO TECHNIQUE: Ultrasound evaluation of the pelvis using TRANSVAGINAL technique PELVIC ULTRASOUND, OVARIAN VASCULAR DOPPLER DUPLEX ASSESSMENT PRIORS: Transabdominal pelvic ultrasound 11/15/2017 and Ob ultrasound 01/17/2017 FINDINGS: Uterus size and shape are normal, 9.8 x 4.4 x 7.0 cm. No evidence of uterine mass. The endometrium is homogenous. Endometrial thickness is 6.0mm. Nonspecific small amount of fluid in endometrial canal. There is no cul-de-sac free fluid. Normal ovarian size. No evidence of solid ovarian mass. Ovarian/adnexal blood flow is present. The adnexa are normal. Bilateral ovarian follicles, largest on the right measuring 23 mm. Right ovary: 4.4 x 2.4 x 2.8 cm Left ovary: 4.7 x 2.2 x 1.9 cm OVARIAN VASCULAR DOPPLER DUPLEX ASSESSMENT: There are normal ovarian color Doppler and duplex waveforms bilaterally. No sonographic evidence of ovarian torsion. IMPRESSION: Nonspecific trace free fluid in endometrial cavity. No other significant finding. Ovarian vascular duplex assessment is within normal limits Transcribed By: MARCIAL Dictated By: SADE HOUGH MD Electronically Authenticated By: SADE HOUGH MD Signed Date/Time: 11/15/171128 DD/ 28 TD/TT: 11/15/171128 Critical care attestation.: If time is entered above; I have spent that time in minutes in the direct care of this critically ill patient, excluding procedure time. ED Disposition Clinical Impression: Pelvic pain, UTI (urinary tract infection) Disposition: TO HOME OR SELFCARE Is pt being admited?: No Condition: Stable Instructions: Abdominal Pain (ED), Urinary Tract Infection in Women (ED) Referrals: PRIMARY CARE, [Primary Care Provider] - 3-5 Days
[2017-11-15 10:15] LABS: Basophils # (Auto) 0.1 K/mm3 (0.0-0.1); Basophils % (Auto) 1.3 % (0.0-1.8); Eosinophils # (Auto) 0.2 K/mm3 (0.0-0.4); Eosinophils % (Auto) 3.8 % (0.0-4.3); Hematocrit 38.2 % (30.3-42.9); Hemoglobin 12.6 gm/dl (10.1-14.3); Lymphocytes # (Auto) 1.8 K/mm3 (1.2-5.4); Lymphocytes % (Auto) 36.1 % (13.4-35.0); Mean Corpuscular HGB Conc 33 % (30-34); Mean Corpuscular Hemoglobin 26 pg (28-32); Mean Corpuscular Volume 80 fl (79-97); Monocytes # (Auto) 0.4 K/mm3 (0.0-0.8); Monocytes % (Auto) 8.3 % (0.0-7.3); Platelet Count 286 K/mm3 (140-440); Red Blood Count 4.76 M/mm3 (3.65-5.03); Red Cell Distribution Width 16.2 % (13.2-15.2)
[2017-11-15 10:16] LABS: Bilirubin,Urine NEG (Negative); Blood,Urine NEG (Negative); Color,Urine Yellow (Yellow); Mucus,Urine 2+ /HPF; Urobilinogen,Urine < 2.0 mg/dL (<2.0)
[2017-11-15 10:33] LABS: BUN/Creatinine Ratio 11; Blood Urea Nitrogen 10 mg/dL (7-17); Calcium 9.3 mg/dL (8.4-10.2); Hemolysis Index 222; Lipase 33 units/L (13-60)
[2017-11-15 10:42] LABS: Alanine Aminotransferase 18 units/L (7-56)
--- NOTE | 2017-11-15 11:33 | Ultrasound Report ---
FINAL REPORT EXAM: US TRANSVAGINAL PELVIC ULTRASOUND, OVARIAN VASCULAR DOPPLER DUPLEX ASSESSMENT HISTORY: ABDOMINAL PAIN/ S/P 2 MONTHS AGO TECHNIQUE: Ultrasound evaluation of the pelvis using TRANSVAGINAL technique PELVIC ULTRASOUND, OVARIAN VASCULAR DOPPLER DUPLEX ASSESSMENT PRIORS: Transabdominal pelvic ultrasound 11/15/2017 and Ob ultrasound 01/17/2017 FINDINGS: Uterus size and shape are normal, 9.8 x 4.4 x 7.0 cm. No evidence of uterine mass. The endometrium is homogenous. Endometrial thickness is 6.0mm. Nonspecific small amount of fluid in endometrial canal. There is no cul-de-sac free fluid. Normal ovarian size. No evidence of solid ovarian mass. Ovarian/adnexal blood flow is present. The adnexa are normal. Bilateral ovarian follicles, largest on the right measuring 23 mm. Right ovary: 4.4 x 2.4 x 2.8 cm Left ovary: 4.7 x 2.2 x 1.9 cm OVARIAN VASCULAR DOPPLER DUPLEX ASSESSMENT: There are normal ovarian color Doppler and duplex waveforms bilaterally. No sonographic evidence of ovarian torsion. IMPRESSION: Nonspecific trace free fluid in endometrial cavity. No other significant finding. Ovarian vascular duplex assessment is within normal limits
--- NOTE | 2017-11-15 11:35 | Ultrasound Report ---
FINAL REPORT EXAM: US PELVIC COMPLETE HISTORY: ABDOMINAL PAIN/ S/P 2 MONTHS AGO TECHNIQUE: Ultrasound evaluation of the pelvis using TRANSABDOMINAL technique PRIORS: Endovaginal pelvic ultrasound 11/15/2017 and Ob ultrasound 01/17/2017 FINDINGS: Uterus size and shape are normal, 9.8 x 4.4 x 7.0 cm. No evidence of uterine mass. The endometrium is homogenous. Endometrial thickness is 6.0mm. There is no cul-de-sac free fluid. Normal ovarian size. No evidence of solid ovarian mass. Ovarian/adnexal blood flow is present. The adnexa are normal. Bilateral ovarian follicles. Right ovary: 4.4 x 2.4 x 2.8 cm Left ovary: 4.7 x 2.2 x 1.9 cm IMPRESSION: No sonographic evidence of acute pathology
== END 2017-11-15 12:43 | disposition home or self-care (01) ==
LOC: ED 09:14
DX: N39.0 Urinary tract infection, site not specified (principal); F17.200 Nicotine dependence, unspecified, uncomplicated; M32.9 Systemic lupus erythematosus, unspecified; Z88.6 Allergy status to analgesic agent; Z88.8 Allergy status to other drugs, medicaments and biological substances
CPT/HCPCS: 36415; 76830; 76856; 80053; 81001; 83690; 84703; 85025; 96372; 99284; J2270; J2405

== ENCOUNTER 2017-12-16 19:18 | Emergency (ER) | payer MEDICAID ==
[2017-12-16 20:13] LABS: Hematocrit 38.6 % (30.3-42.9); Hemoglobin 12.5 gm/dl (10.1-14.3); Mean Corpuscular HGB Conc 32 % (30-34); Mean Corpuscular Hemoglobin 27 pg (28-32); Mean Corpuscular Volume 82 fl (79-97); Platelet Count 307 K/mm3 (140-440); Red Blood Count 4.72 M/mm3 (3.65-5.03); Red Cell Distribution Width 15.2 % (13.2-15.2)
[2017-12-16 20:54] LABS: BUN/Creatinine Ratio 7; Blood Urea Nitrogen 7 mg/dL (7-17); Calcium 9.6 mg/dL (8.4-10.2); Hemolysis Index 3
--- NOTE | 2017-12-16 21:41 | XRay Report ---
FINAL REPORT PROCEDURE: XR CHEST ROUTINE 2V TECHNIQUE: PA and lateral chest radiographs were obtained. CPT 18019 HISTORY: c/o,sob COMPARISON: No prior studies are available for comparison. FINDINGS: Heart: Normal. Mediastinum/Vessels: Normal. Lungs/Pleural space: No infiltrate, effusion, or pneumothorax. Bony thorax: No acute osseous abnormality. Other: IMPRESSION: No radiographic evidence of acute abnormality.
--- NOTE | 2017-12-17 01:47 | Emergency Department Report ---
ED Chest Pain HPI - General Chief Complaint: Chest Pain Stated Complaint: CHEST PAIN Time Seen by Provider: 12/16/17 23:19 Source: patient Mode of arrival: Ambulatory Limitations: No Limitations - History of Present Illness Initial Comments: This is a 27-year-old female presents to the emergency department with a complaint of intermittent left-sided chest pain, just below her breast. She says that the pain has been going on intermittently since the of her child in August of this year but has been exacerbated over the past week. It is associated with some shortness of breath with exertion and some shooting pains towards her back. She has not taken anything for her symptoms prior to presentation. She does have a past medical history of lupus. She is a tobacco smoker but denies any illicit drug use or abuse. Patient did have a relatively recent 11 hour [address] ride. She denies any lower extremity swelling. She does not have a primary care physician. - Related Data Home Medications Medication Instructions Recorded Confirmed Last Taken Omeprazole [PriLOSEC] 20 mg PO BID 03/15/15 03/15/15 03/14/15 15:30 Previous Rx's Medication Instructions Recorded Last Taken Type Ferrous Sulfate [Feosol 325 MG tab] 325 mg PO BID #90 tablet 03/30/14 03/14/15 15:30 Rx Ondansetron [Zofran Odt] 4 mg PO Q8HR #10 tab.rapdis 02/13/15 03/15/15 08:00 Rx Diphenhydramine HCl [Benadryl 25 mg PO Q6HR PRN #30 tablet 03/15/15 Unknown Rx Allergy TAB] Loratadine [Claritin] 10 mg PO DAILY #30 tablet 03/15/15 Unknown Rx methOCARBAMOL [Robaxin TAB] 500 mg PO Q6H PRN #15 tablet 08/16/16 Unknown Rx HYDROcodone/APAP 5-325 [[place] 1 each PO Q4HR PRN #10 tablet 12/08/16 Unknown Rx 5/325] Pnv,Calcium 72/Iron,Carb/Folic 1 each PO QDAY #30 tablet 01/17/17 Unknown Rx [ Plus Iron Tablet] Cyclobenzaprine [Flexeril] 10 mg PO TID PRN #15 tablet 02/24/17 Unknown Rx Nitrofurantoin [place]/M-Cryst 100 mg PO Q12HR #14 capsule 02/24/17 Unknown Rx [Macrobid CAP] Acetaminophen/Codeine [Tylenol 1 tab PO Q6H PRN #14 tab 03/10/17 Unknown Rx /Codeine # 3 tab] Ondansetron [Zofran Odt] 4 mg PO Q8HR PRN #14 tab.rapdis 03/10/17 Unknown Rx Ciprofloxacin HCl [Ciprofloxacin 500 mg PO Q12H #14 tab 11/15/17 Unknown Rx TAB] Ketorolac [Toradol] 10 mg PO Q6H PRN #20 tablet 11/15/17 Unknown Rx Ibuprofen [Motrin 600 MG tab] 600 mg PO Q8H PRN #20 tablet 12/17/17 Unknown Rx Allergies Allergy/AdvReac Type Severity Reaction Status Date / Time tramadol Allergy Shortness Verified 11/15/17 09:15 of Breath terbutaline sulfate AdvReac Vomiting Verified 11/15/17 09:15 [From Brethine] Heart Score - HEART Score History: Slightly suspicious EKG: Normal Age: < 45 Risk factors: 1-2 risk factors Troponin: < normal limit HEART Score: 1 - Critical Actions Critical Actions: 0-3 pts:0.9-1.7%risk of adverse cardiac event.Candidate for discharge ED Review of Systems ROS: Stated complaint: CHEST PAIN Other details as noted in HPI Comment: All other systems reviewed and negative Constitutional: denies: chills, fever Eyes: denies: eye pain, eye discharge, vision change ENT: denies: ear pain, throat pain Respiratory: SOB with exertion. denies: wheezing Cardiovascular: chest pain. denies: palpitations Gastrointestinal: denies: abdominal pain, nausea, diarrhea Genitourinary: denies: urgency, dysuria, discharge Musculoskeletal: denies: back pain, joint swelling, arthralgia Skin: denies: rash, lesions Neurological: denies: headache, weakness, paresthesias ED Past Medical Hx - Past Medical History Hx Hypertension: No Hx Congestive Heart Failure: No Hx Diabetes: No Hx Deep Vein Thrombosis: No Hx Renal Disease: No Hx Sickle Cell Disease: No Hx Seizures: No Hx Asthma: No Hx COPD: No Hx HIV: No Additional medical history: lupus dx 2015 - Social History Smoking Status: Current Every Day Smoker Substance Use Type: None - Medications Home Medications: Home Medications Medication Instructions Recorded Confirmed Last Taken Type Ferrous Sulfate [Feosol 325 MG tab] 325 mg PO BID #90 tablet 03/30/14 03/15/15 03/14/15 15:30 Rx Ondansetron [Zofran Odt] 4 mg PO Q8HR #10 tab.rapdis 02/13/15 03/15/15 03/15/15 08:00 Rx Diphenhydramine HCl [Benadryl 25 mg PO Q6HR PRN #30 tablet 03/15/15 Unknown Rx Allergy TAB] Loratadine [Claritin] 10 mg PO DAILY #30 tablet 03/15/15 Unknown Rx Omeprazole [PriLOSEC] 20 mg PO BID 03/15/15 03/15/15 03/14/15 15:30 History methOCARBAMOL [Robaxin TAB] 500 mg PO Q6H PRN #15 tablet 08/16/16 Unknown Rx HYDROcodone/APAP 5-325 [[place] 1 each PO Q4HR PRN #10 tablet 12/08/16 Unknown Rx 5/325] Pnv,Calcium 72/Iron,Carb/Folic 1 each PO QDAY #30 tablet 01/17/17 Unknown Rx [ Plus Iron Tablet] Cyclobenzaprine [Flexeril] 10 mg PO TID PRN #15 tablet 02/24/17 Unknown Rx Nitrofurantoin [place]/M-Cryst 100 mg PO Q12HR #14 capsule 02/24/17 Unknown Rx [Macrobid CAP] Acetaminophen/Codeine [Tylenol 1 tab PO Q6H PRN #14 tab 03/10/17 Unknown Rx /Codeine # 3 tab] Ondansetron [Zofran Odt] 4 mg PO Q8HR PRN #14 tab.rapdis 03/10/17 Unknown Rx Ciprofloxacin HCl [Ciprofloxacin 500 mg PO Q12H #14 tab 11/15/17 Unknown Rx TAB] Ketorolac [Toradol] 10 mg PO Q6H PRN #20 tablet 11/15/17 Unknown Rx Ibuprofen [Motrin 600 MG tab] 600 mg PO Q8H PRN #20 tablet 12/17/17 Unknown Rx ED Physical Exam - General Limitations: No Limitations - Other Other exam information: GENERAL: The patient is well-developed well-nourished. HENT: Normocephalic. Atraumatic. Patient has moist mucous membranes. EYES: Extraocular motions are intact. Pupils equal reactive to light bilaterally. NECK: Supple. Trachea is midline. CHEST/LUNGS: Clear to auscultation. There is no respiratory distress noted. HEART/CARDIOVASCULAR: Regular. There is no tachycardia. There is no murmur. ABDOMEN: Abdomen is soft, nontender. Patient has normal bowel sounds. There is no abdominal distention. SKIN: Skin is warm and dry. NEURO: The patient is awake, alert, and oriented. The patient is cooperative. The patient has no focal neurologic deficits. The patient has normal speech. MUSCULOSKELETAL: There is no tenderness or deformity. There is no limitation range of motion. There is no evidence of acute injury. ED Course Vital Signs 12/16/17 12/17/17 19:44 02:18 Temperature 98.1 F 98.4 F Pulse Rate 81 71 Respiratory 18 16 Rate Blood Pressure 114/76 Blood Pressure 108/68 [Left] O2 Sat by Pulse 100 100 Oximetry CIPRIANO score - Cipriano Score Age > 65: (0) No Aspirin use within the Past 7 Days: (0) No 3 or more CAD Risk Factors: (0) No 2 or more Angina events in past 24 hrs: (1) Yes (if pain is angina, 0 if not) Known CAD with more than 50% Stenosis: (0) No Elevated Cardiac Markers: (0) No ST Deviation Greater than 0.5mm: (0) No CIPRIANO Score: 1 ED Medical Decision Making - Lab Data Result diagrams: 12/16/17 19:57 12/16/17 19:57 - EKG Data -: EKG Interpreted by Tn EKG shows normal: sinus rhythm, axis, intervals, QRS complexes, ST-T waves ( nonspecific T waves) Rate: normal - EKG Data When compared to previous EKG there are: previous EKG unavailable Interpretation: other (sinus rhythm, normal axis, normal intervals, nonspecific T waves, no ST elevation NM) - Radiology Data Radiology results: report reviewed, image reviewed interpreted by me: Chest x-ray does not show any acute process. There are no pleural effusions, obvious pneumonia and there is no pneumothorax. EXAM: CT ANGIO CHEST HISTORY: CP, elevated dimer TECHNIQUE: CT evaluations performed of the chest following IV contrast administration time for evaluation of the pulmonary arterial system. Coronal and sagittal imaging was also provided for interpretation. Additional multiplanar MIP images. PRIORS: Chest radiographs 12/16/2017. FINDINGS: CT evaluation of the pulmonary arterial system reveals no focal filling defects to suggest pulmonary embolism. The pulmonary parenchyma is normal without evidence of interstitial or airspace disease. The heart and great vessels,pleura and diaphragms are normal. There is no evidence of mediastinal, hilar, or axillary lymphadenopathy. The visualized upper abdominal viscera and osseous structures are unremarkable. IMPRESSION: No CT evidence of acute pulmonary embolism. Transcribed By: DT Dictated By: CHIP NAVAS DO Electronically Authenticated By: CHIP NAVAS DO Signed Date/Time: 12/17/17 9381 - Medical Decision Making Patient presents with some intermittent left-sided chest pain and some occasional shortness of breath with exertion. EKG does not show any signs of ST elevation NM or dysrhythmia. Chest x-ray does not show any acute process including no pneumonia, pleural effusions, focal consolidation or pneumothorax. Labs have been mostly unremarkable including negative troponins 2. She did have a slightly elevated and equivocal d-dimer and therefore a CT angiography of the chest was done that resulted as no pulmonary embolism, dissection or any other acute process. The patient is very low on the Savage score criteria. Her only risk factor for coronary artery disease is tobacco use. She has a CIPRIANO score of one of her pain is considered angina and 0 if not. Vital signs stable throughout her ED course. Patient is currently asymptomatic prior to discharge. She has been given a referral for primary care and cardiology. She has been instructed to return to the emergency Department with any worsening of her symptoms or any acute distress. - Differential Diagnosis costochondritis, pneumonia, PE, NM Critical Care Time: No Critical care attestation.: If time is entered above; I have spent that time in minutes in the direct care of this critically ill patient, excluding procedure time. ED Disposition Clinical Impression: Intermittent chest pain Dyspnea Qualifiers: Dyspnea type: shortness of breath Qualified Code(s): R06.02 - Shortness of breath Disposition: DC-01 TO HOME OR SELFCARE Is pt being admited?: No Condition: Stable Instructions: Chest Pain (ED), Costochondritis (ED) Additional Instructions: Please follow up with a primary care physician in the next few days. I have given you a referral for a local travel journalist/heart doctor, Dr. Lan, to follow up regarding your chest pains. Return to the emergency Department with any worsening of your symptoms or any acute distress. Prescriptions: Ibuprofen [Motrin 600 MG tab] 600 mg PO Q8H PRN #20 tablet PRN Reason: Pain Referrals: PRIMARY CARE, [Primary Care Provider] - 3-5 Days REBECCA LAN MD [Staff Physician] - 3-5 Days [facility] [Outside] - 3-5 Days Time of Disposition: 02:33
[2017-12-17] MEDS ORDERED: NACL 0.9% 50 ML ONE (02:05)
[2017-12-17 02:18] VITALS: BP 108/68
--- NOTE | 2017-12-17 02:26 | Cat Scan Report ---
FINAL REPORT EXAM: CT ANGIO CHEST HISTORY: CP, elevated dimer TECHNIQUE: CT evaluations performed of the chest following IV contrast administration time for evaluation of the pulmonary arterial system. Coronal and sagittal imaging was also provided for interpretation. Additional multiplanar MIP images. PRIORS: Chest radiographs 12/16/2017. FINDINGS: CT evaluation of the pulmonary arterial system reveals no focal filling defects to suggest pulmonary embolism. The pulmonary parenchyma is normal without evidence of interstitial or airspace disease. The heart and great vessels,pleura and diaphragms are normal. There is no evidence of mediastinal, hilar, or axillary lymphadenopathy. The visualized upper abdominal viscera and osseous structures are unremarkable. IMPRESSION: No CT evidence of acute pulmonary embolism.
== END 2017-12-17 03:21 | disposition home or self-care (01) ==
LOC: ED 19:18
DX: R07.89 Other chest pain (principal); R06.00 Dyspnea, unspecified; F17.200 Nicotine dependence, unspecified, uncomplicated; Z88.8 Allergy status to other drugs, medicaments and biological substances
CPT/HCPCS: 36415; 71046; 71275; 80048; 84484; 84702; 85027; 85379; 93005; 93010; 99284; Q9967

== ENCOUNTER 2018-02-11 00:38 | Emergency (ER) | payer MEDICAID ==
[2018-02-11 01:26] LABS: Basophils # (Auto) 0.1 K/mm3 (0.0-0.1); Basophils % (Auto) 0.7 % (0.0-1.8); Eosinophils # (Auto) 0.1 K/mm3 (0.0-0.4); Eosinophils % (Auto) 1.1 % (0.0-4.3); Hematocrit 35.3 % (30.3-42.9); Hemoglobin 11.6 gm/dl (10.1-14.3); Lymphocytes % (Auto) 24.9 % (13.4-35.0); Mean Corpuscular HGB Conc 33 % (30-34); Mean Corpuscular Hemoglobin 26 pg (28-32); Mean Corpuscular Volume 79 fl (79-97); Monocytes # (Auto) 0.4 K/mm3 (0.0-0.8); Monocytes % (Auto) 5.4 % (0.0-7.3); Platelet Count 288 K/mm3 (140-440); Red Blood Count 4.45 M/mm3 (3.65-5.03); Red Cell Distribution Width 16.1 % (13.2-15.2)
[2018-02-11 01:55] LABS: Bilirubin,Urine NEG (Negative); Blood,Urine NEG (Negative); Color,Urine Yellow (Yellow); Mucus,Urine FEW /HPF; Protein,Urine <15 mg/dL mg/dL (Negative); Urobilinogen,Urine < 2.0 mg/dL (<2.0)
[2018-02-11] MEDS ORDERED: TYLENOL PO ONE (02:54)
--- NOTE | 2018-02-11 02:58 | Emergency Department Report ---
ED HPI - General Chief complaint: Vaginal Bleeding Stated complaint: POSS MISCARRIAGE Source: patient, EMS Mode of arrival: Wheelchair Limitations: No Limitations - History of Present Illness Initial comments: 28-year-old -[place] female that's 6 para 4 comes in today for abdominal tightness and vaginal bleeding that started about midnight. Patient reports no pads and soaked. She reports that she's had some clots. She had a positive test at home. Last menstrual period was 01/04/2018. She has not started OB care and has not taken anything for pain. This denies any fever chills admits to nausea and vomited 1. MD Complaint: abdominal pain, vaginal bleeding -: During the night Time: 00:00 Location: pelvis Radiation: none Severity scale (0 -10): 6 Quality: cramping Consistency: constant Improves with: none Worsens with: none Associated symptoms: vaginal bleeding, abdominal pain. denies: dysuria, headache, shortness of breath Vaginal bleeding: light :: Yes Last menstrual period: 01/04/18 Pre-mark care: none - Related Data : 6 Para: 4 Home Medications Medication Instructions Recorded Confirmed Last Taken Omeprazole [PriLOSEC] 20 mg PO BID 03/15/15 03/15/15 03/14/15 15:30 Previous Rx's Medication Instructions Recorded Last Taken Type Ferrous Sulfate [Feosol 325 MG tab] 325 mg PO BID #90 tablet 03/30/14 03/14/15 15:30 Rx Ondansetron [Zofran Odt] 4 mg PO Q8HR #10 tab.rapdis 02/13/15 03/15/15 08:00 Rx Diphenhydramine HCl [Benadryl 25 mg PO Q6HR PRN #30 tablet 03/15/15 Unknown Rx Allergy TAB] Loratadine [Claritin] 10 mg PO DAILY #30 tablet 03/15/15 Unknown Rx methOCARBAMOL [Robaxin TAB] 500 mg PO Q6H PRN #15 tablet 08/16/16 Unknown Rx HYDROcodone/APAP 5-325 [[place] 1 each PO Q4HR PRN #10 tablet 12/08/16 Unknown Rx 5/325] Pnv,Calcium 72/Iron,Carb/Folic 1 each PO QDAY #30 tablet 01/17/17 Unknown Rx [ Plus Iron Tablet] Cyclobenzaprine [Flexeril] 10 mg PO TID PRN #15 tablet 02/24/17 Unknown Rx Nitrofurantoin [place]/M-Cryst 100 mg PO Q12HR #14 capsule 02/24/17 Unknown Rx [Macrobid CAP] Acetaminophen/Codeine [Tylenol 1 tab PO Q6H PRN #14 tab 03/10/17 Unknown Rx /Codeine # 3 tab] Ondansetron [Zofran Odt] 4 mg PO Q8HR PRN #14 tab.rapdis 03/10/17 Unknown Rx Ciprofloxacin HCl [Ciprofloxacin 500 mg PO Q12H #14 tab 11/15/17 Unknown Rx TAB] Ketorolac [Toradol] 10 mg PO Q6H PRN #20 tablet 11/15/17 Unknown Rx Ibuprofen [Motrin 600 MG tab] 600 mg PO Q8H PRN #20 tablet 12/17/17 Unknown Rx Allergies Allergy/AdvReac Type Severity Reaction Status Date / Time tramadol Allergy Shortness Verified 11/15/17 09:15 of Breath terbutaline sulfate AdvReac Vomiting Verified 11/15/17 09:15 [From Jacey] ED Review of Systems ROS: Stated complaint: POSS MISCARRIAGE Other details as noted in HPI Comment: All other systems reviewed and negative Constitutional: denies: chills, fever ED Past Medical Hx - Past Medical History Previous Medical History?: Yes Hx Hypertension: No Hx Congestive Heart Failure: No Hx Diabetes: No Hx Deep Vein Thrombosis: No Hx Renal Disease: No Hx Sickle Cell Disease: No Hx Seizures: No Hx Asthma: No Hx COPD: No Hx HIV: No Additional medical history: lupus dx 2014 - Surgical History Past Surgical History?: No - Social History Smoking Status: Current Every Day Smoker Substance Use Type: None - Medications Home Medications: Home Medications Medication Instructions Recorded Confirmed Last Taken Type Ferrous Sulfate [Feosol 325 MG tab] 325 mg PO BID #90 tablet 03/30/14 03/15/15 03/14/15 15:30 Rx Ondansetron [Zofran Odt] 4 mg PO Q8HR #10 tab.rapdis 02/13/15 03/15/15 03/15/15 08:00 Rx Diphenhydramine HCl [Benadryl 25 mg PO Q6HR PRN #30 tablet 03/15/15 Unknown Rx Allergy TAB] Loratadine [Claritin] 10 mg PO DAILY #30 tablet 03/15/15 Unknown Rx Omeprazole [PriLOSEC] 20 mg PO BID 03/15/15 03/15/15 03/14/15 15:30 History methOCARBAMOL [Robaxin TAB] 500 mg PO Q6H PRN #15 tablet 08/16/16 Unknown Rx HYDROcodone/APAP 5-325 [[place] 1 each PO Q4HR PRN #10 tablet 12/08/16 Unknown Rx 5/325] Pnv,Calcium 72/Iron,Carb/Folic 1 each PO QDAY #30 tablet 01/17/17 Unknown Rx [ Plus Iron Tablet] Cyclobenzaprine [Flexeril] 10 mg PO TID PRN #15 tablet 02/24/17 Unknown Rx Nitrofurantoin [place]/M-Cryst 100 mg PO Q12HR #14 capsule 02/24/17 Unknown Rx [Macrobid CAP] Acetaminophen/Codeine [Tylenol 1 tab PO Q6H PRN #14 tab 03/10/17 Unknown Rx /Codeine # 3 tab] Ondansetron [Zofran Odt] 4 mg PO Q8HR PRN #14 tab.rapdis 03/10/17 Unknown Rx Ciprofloxacin HCl [Ciprofloxacin 500 mg PO Q12H #14 tab 11/15/17 Unknown Rx TAB] Ketorolac [Toradol] 10 mg PO Q6H PRN #20 tablet 11/15/17 Unknown Rx Ibuprofen [Motrin 600 MG tab] 600 mg PO Q8H PRN #20 tablet 12/17/17 Unknown Rx ED Physical Exam - General Limitations: No Limitations General appearance: alert, in no apparent distress - Head Head exam: Present: atraumatic, normocephalic - Eye Eye exam: Present: normal appearance, EOMI - ENT ENT exam: Present: mucous membranes moist - Respiratory Respiratory exam: Present: normal lung sounds bilaterally. Absent: respiratory distress - Cardiovascular Cardiovascular Exam: Present: regular rate, normal rhythm. Absent: systolic murmur, diastolic murmur, rubs, gallop - GI/Abdominal GI/Abdominal exam: Present: soft, tenderness. Absent: distended - Extremities Exam Extremities exam: Present: normal inspection, full ROM - Neurological Exam Neurological exam: Present: alert, oriented X3 - Psychiatric Psychiatric exam: Present: normal affect, normal mood - Skin Skin exam: Present: warm, dry, intact, normal color. Absent: rash ED Course Vital Signs 02/11/18 00:43 Temperature 98.8 F Pulse Rate 90 Respiratory 16 Rate Blood Pressure 105/73 O2 Sat by Pulse 98 Oximetry ED Medical Decision Making - Lab Data Result diagrams: 02/11/18 00:53 - Medical Decision Making Patient has been evaluated but this provider fast track. Tylenol has been ordered for pain management. Ultrasound has been ordered. Critical care attestation.: If time is entered above; I have spent that time in minutes in the direct care of this critically ill patient, excluding procedure time. ED Disposition Condition: Stable Referrals: PRIMARY CARE, [Primary Care Provider] - 3-5 Days
[2018-02-11 05:25] VITALS: BP 115/67
--- NOTE | 2018-02-11 05:28 | Ultrasound Report ---
FINAL REPORT EXAM: US OB < = 14 WEEKS FETUS HISTORY: positive with vaginal bleeding or pain COMPARISONS: 11/15/2017 FINDINGS: Transabdominal grayscale, color Doppler and M-mode first-trimester ultrasound Single living intrauterine is documented with recorded cardiac activity of 95 beats per minute and crown-rump length of approximately 3 millimeters. Estimated gestational age is 5 weeks 6 days corresponding to a delivery date of 10/08/2018. A perigestational hemorrhage is suggested involving less than 50 percent of the gestational sac surface area. Probable yolk sac measures 3-4 millimeters in diameter. No free fluid in the pelvis. Functional cysts are noted in both ovaries, which are otherwise unremarkable and measure 3.1 x 2 x 1.6 cm on the right and 3.2 x 2.4 x 2.6 cm on the left. IMPRESSION: A single living intrauterine with estimated gestational age of 5 weeks 6 days corresponding to delivery date of 10/08/2018. A perigestational hemorrhage is suggested involving less than 50 percent of the gestational sac surface area. In the absence of additional symptoms, short interval follow-up in 2-3 weeks is suggested for more accurate dating.
--- NOTE | 2018-02-11 07:38 | Ultrasound Report ---
FINAL REPORT EXAM: US OB TRANSVAGINAL HISTORY: positive with vaginal bleeding or pain COMPARISONS: Transabdominal ultrasound of the same date FINDINGS: Transvaginal grayscale, color Doppler and M-mode first-trimester ultrasound There is a single living intrauterine with recorded cardiac activity of 95 beats per minute and crown-rump length of approximately 4 millimeters, which corresponds to estimated gestational age of 6 weeks 0 days and delivery date of 10/07/2018. A small perigestational hemorrhage is suggested involving less than 50 percent of the gestational sac surface area. There is no free fluid in the pelvis. Functional cysts are noted in both ovaries, which are otherwise unremarkable and measure 3.1 x 2 x 1.6 cm on the right and 3.2 x 2.4 x 2.6 cm on the left. IMPRESSION: Single living intrauterine with estimated gestational age of 6 weeks 0 days and delivery date of 10/07/2018. A perigestational hemorrhage is suggested involving less than 50 percent of the gestational sac surface area.
== END 2018-02-11 05:27 | disposition left against medical advice (07) ==
LOC: ED 00:38
DX: O26.891 Other specified pregnancy related conditions, first trimester (principal); R10.2 Pelvic and perineal pain; O20.8 Other hemorrhage in early pregnancy; O99.331 Smoking (tobacco) complicating pregnancy, first trimester; Z3A.01 Less than 8 weeks gestation of pregnancy
CPT/HCPCS: 36415; 76801; 76817; 81001; 84702; 85025; 86850; 86900; 86901

== ENCOUNTER 2018-08-08 14:04 | Outpatient (CLI) | payer MEDICAID ==
[2018-08-08] MEDS ORDERED: LACTATED RINGERS 1,000 ML IV ONE (15:10)
[2018-08-08 15:57] LABS: BUN/Creatinine Ratio 3; Blood Urea Nitrogen 2 mg/dL (7-17); Calcium 8.8 mg/dL (8.4-10.2); Hemolysis Index 31
[2018-08-08 16:21] VITALS: BP 111/67
== END 2018-08-08 16:24 | disposition home or self-care (01) ==
LOC: TRG 14:04
PROVIDERS: ATTEND Obstetrics & Gynecology
DX: O47.03 False labor before 37 completed weeks of gestation, third trimester (principal); Z3A.32 32 weeks gestation of pregnancy
CPT/HCPCS: 36415; 59025; 80048

== ENCOUNTER 2018-09-29 15:01 | Inpatient (IN) | payer MEDICAID ==
[2018-09-29] MEDS ORDERED: STADOL IV PRN (15:50)
[2018-09-29] MEDS ORDERED: ZOFRAN IV PRN (15:50)
[2018-09-29] MEDS ORDERED: PHENERGAN PO PRN (15:50)
[2018-09-29] MEDS ORDERED: MINERAL OIL PO PRN (15:50)
[2018-09-29] MEDS ORDERED: SUBLIMAZE IV PRN (15:50)
[2018-09-29] MEDS ORDERED: AMPICILLIN/NS 2 GM/100 ML 2 GM/100 ML BAG IV ONE (15:50)
[2018-09-29] MEDS ORDERED: XYLOCAINE 2% INFILTRATI ONE (15:50)
--- NOTE | 2018-09-29 15:53 | History and Physical Report ---
History of Present Illness Date of examination: 09/29/18 Date of admission: 09/29/18 15:48 Chief complaint: Labor History of present illness: Pt is a 28yo BF EDC 10/03/18; EGA 39 3/7 weeks presents to L&D complaining of RUC's q 3-4 mins. She received care at [facility] since 20 weeks and co-managed by [facility] for Lupus and cardiac issue - possible persistent left SVC. records are available and GBS is Negative. Past History Past Medical History: other (Lupus) Past Surgical History: no surgical history Family/Genetic History: none Social history: no significant social history, single - Obstetrical History Expected Date of Delivery: 10/03/18 Actual Gestation: 39 Week(s) 3 Day(s) : 6 Medications and Allergies Allergies Allergy/AdvReac Type Severity Reaction Status Date / Time tramadol Allergy Shortness Verified 11/15/17 09:15 of Breath terbutaline sulfate AdvReac Vomiting Verified 11/15/17 09:15 [From Brethine] Home Medications Medication Instructions Recorded Confirmed Last Taken Type Multivitamin Tablet 1 tab PO DAILY 09/29/18 09/29/18 09/21/18 History 1 Review of Systems All systems: negative - Physical Exam Breasts: Positive: deferred Cardiovascular: Regular rate Lungs: Positive: Clear to auscultation Abdomen: Positive: normal appearance Genitourinary (Female): Positive: normal external genitalia Vagina: Positive: normal moisture Uterus: Positive: enlarged Extremities: Positive: normal - Obstetrical FHR: category 1 Uterine Contraction Monitor Mode: External Cervical Dilatation: 4 (per nurse) Cervical Effacement Percentage: 60 (per nurse) station: -2 Uterine Contraction Pattern: Regular Uterine Tone Measurement Phase: Contraction Uterine Contraction Intensity: Moderate Results Result Diagrams: 09/29/18 17:05 All other labs normal. Assessment and Plan - Patient Problems (1) 39 weeks gestation of Onset Date: 09/29/18 Current Visit: Yes Status: Acute Plan to address problem: A: IUP @ 39 3/7 weeks in labor ? Lupus ? cardiac issue P: Admit to L&D for expectant vaginal delivery consultation.
[2018-09-29] MEDS ORDERED: PITOCin/NS 20 UNIT/1000ML DRIP 20,000 MILLIUNITS/1,000 ML BAG IV ONE (15:56)
[2018-09-29] MEDS ORDERED: PITOCin/NS 30 UNIT/500ML 30 UNITS/500 ML BAG IV SCH ×2 (16:00)
[2018-09-29] MEDS ORDERED: LACTATED RINGERS 1,000 ML IV SCH (16:00)
[2018-09-29] MEDS ORDERED: PITOCin/NS 20 UNIT/1000ML DRIP 20 UNITS/1,000 ML BAG IV SCH (16:00)
[2018-09-29] MEDS: PITOCin/NS 30 UNIT/500ML 30 UNITS/500 ML BAG IV SCH ×4 (16:20→18:06)
[2018-09-29 17:24] LABS: Hematocrit 29.7 % (30.3-42.9); Mean Corpuscular HGB Conc 34 % (30-34); Mean Corpuscular Volume 77 fl (79-97); Platelet Count 146 K/mm3 (140-440); Red Blood Count 3.88 M/mm3 (3.65-5.03); Red Cell Distribution Width 17.1 % (13.2-15.2)
[2018-09-29] MEDS ORDERED: AMPICILLIN/NS 1 GM/50 ML 1 GM/50 ML BAG IV SCH (19:51)
[2018-09-29] MEDS ORDERED: MARCAINE 0.5% INFILTRATI ONE (23:16)
[2018-09-29] MEDS ORDERED: NARCAN 2 MG/2 ML IV PRN (23:38)
--- NOTE | 2018-09-29 23:38 | Anesthesia Consultation ---
Anesthesia Consult and Med Hx Date of service: 09/29/18 - Airway Anesthetic Teeth Evaluation: Good, Partials Mental/Hyoid Distance: Adequate Mallampati Class: Class II Intubation Access Assessment: Good - Pulmonary Exam CTA: Yes - Cardiac Exam Cardiac Exam: RRR - Pre-Operative Health Status ASA Pre-Surgery Classification: ASA2 Proposed Anesthetic Plan: Epidural (hx of lupus) - Pulmonary Hx Asthma: No COPD: No Hx Pneumonia: No - Cardiovascular System Hx Hypertension: No - Central Nervous System Hx Seizures: No Hx Psychiatric Problems: No - Endocrine Hx Renal Disease: No Hx End Stage Renal Disease: No Hx Hypothyroidism: No Hx Hyperthyroidism: No - Hematic Hx Anemia: No Hx Sickle Cell Disease: No - Other Systems Hx Alcohol Use: Yes (Socially before )
[2018-09-29] MEDS: fentaNYL-BUPIV 2 MCG/ML-0.125% 200 MCG/100 ML BAG EPIDURAL SCH (23:45)
[2018-09-30] MEDS: fentaNYL-BUPIV 2 MCG/ML-0.125% 200 MCG/100 ML BAG EPIDURAL SCH (08:29)
[2018-09-30] MEDS ORDERED: MARCAINE 0.5% INFILTRATI ONE (08:40)
--- NOTE | 2018-09-30 09:07 | Procedure Note ---
OB Delivery Note - Delivery Date of Delivery: 09/30/18 Surgeon: FELIPE CHAWLA Estimated blood loss: 300cc - Vaginal Delivery presentation: vertex Delivery position: OP Intrapartum events: none Delivery induction: none Delivery augmentation: rupture of membranes, pitocin Delivery monitor: external FHT, external uterine Route of delivery: Delivery placenta: spontaneous Delivery cord: 3 umbilical vessels Episiotomy: none Delivery laceration: none Anesthesia: epidural Delivery comments: delivered OA and placed on Mom's chest for [id number] bonding and delayed cord clamping, cut by Dad - Infant A at 1 minute: 8 at 5 minutes: 9 Gender: Male (3550gms)
[2018-09-30] MEDS: IBUPROFEN PO PRN (18:34)
--- NOTE | 2018-09-30 20:07 | Post Anesthesia Evaluation ---
- Post Anesthesia Evaluation Patient Participated: Yes Airway Patent: Yes Stable Respiratory Function: Yes Nausea/Vomiting: No Temp > 96.8F: Yes Pain Manageable: Yes Adequeate Hydration: Yes Anesthesia Complications: No Block Receding Appropriately: Yes Patient on Ventilator: No
[2018-10-01] MEDS: IBUPROFEN PO PRN ×2 (07:34→14:22)
[2018-10-01] MEDS ORDERED: SODIUM CHLORIDE FLUSH SYRINGE 10 ML IV PRN (08:00)
[2018-10-01] MEDS ORDERED: ZOFRAN IV PRN (08:30)
[2018-10-01] MEDS ORDERED: BENADRYL PO PRN (08:30)
[2018-10-01] MEDS ORDERED: LANSINOH TP PRN (08:30)
[2018-10-01] MEDS ORDERED: TUCKS PAD TP PRN (08:30)
[2018-10-01] MEDS ORDERED: TYLENOL PO PRN (08:30)
--- NOTE | 2018-10-01 08:56 | Progress Note ---
Assessment and Plan - Patient Problems (1) 39 weeks gestation of Onset Date: 09/29/18 Current Visit: Yes Status: Resolved (2) (normal spontaneous vaginal delivery) Onset Date: 10/01/18 Current Visit: Yes Status: Resolved Plan to address problem: A: S/P - PPD #1 Doing well Asymptomatic anemia - stable P: May go home tomorrow Subjective - Subjective Date of service: 10/01/18 Principal diagnosis: s/p - PPD #1 Interval history: Pt is feeling well without complaints. Bleeding improved. Patient reports: appetite normal, voiding normally, pain well controlled, flatus, ambulating normally, no dizzy ambulation, no nauseated [place]: doing well, bottle feeding Objective - Vital Signs Latest vital signs: Vital Signs Temp Pulse Resp BP BP Pulse Ox 10/01/18 01:49 98.3 F 90 18 116/75 99 09/30/18 21:40 98.6 F 94 H 18 115/70 98 09/30/18 16:16 98.1 F 91 H 16 117/80 98 09/30/18 12:50 98.0 F 92 H 16 118/75 95 09/30/18 11:10 98.5 F 93 H 16 119/72 99 09/30/18 08:56 100 H 117/58 Intake and Output 09/30/18 10/01/18 10/01/18 22:59 06:59 14:59 Intake Total 1160 240 Output Total 700 Balance 460 240 Intake: Oral 1160 240 Output: Urine 700 Void 700 Other: Total, Intake Amount 240 240 Total, Output Amount 700 Voiding Method Toilet # Voids 1 Void 1 1 - Exam Breasts: Present: deferred Abdomen: Present: normal appearance, soft Uterus: Present: normal, firm, fundal height below umbilicus Extremities: Present: normal - Labs Labs: Laboratory Tests 09/29/18 09/29/18 09/29/18 17:05 17:05 17:05 WBC 9.6 RBC 3.88 Hgb 10.0 L Hct 29.7 L MCV 77 L MCH 26 L MCHC 34 RDW 17.1 H Plt Count 146 RPR Nonreactive Blood Type A POSITIVE Antibody Screen TNR MAIK Antibody Screen Negative 10/01/18 09:10 WBC RBC Hgb 8.5 L Hct 26.0 L MCV MCH MCHC RDW Plt Count RPR Blood Type Antibody Screen MAIK Antibody Screen
[2018-10-01] MEDS ORDERED: DULCOLAX PR PRN (10:00)
[2018-10-01 10:01] LABS: Hemoglobin 8.5 gm/dl (10.1-14.3)
[2018-10-01] MEDS ORDERED: MILK OF MAGNESIA PO PRN (22:00)
[2018-10-02] MEDS: IBUPROFEN PO PRN (01:17)
[2018-10-02] MEDS ORDERED: BOOSTRIX IM ONE (06:22)
--- NOTE | 2018-10-02 11:52 | Discharge Summary ---
Providers - Providers Date of Admission: 09/29/18 15:48 Date of discharge: 10/02/18 Attending physician: FELIPE CHAWLA Primary care physician: FELIPE CHAWLA Hospitalization Reason for admission: active labor, IUP at term Delivery: Episiotomy: none Laceration: none Other procedures: none complications: none Discharge diagnosis: IUP at term delivered [place] baby: male Hospital course: Unremarkable. Condition at discharge: Good Disposition: DC-01 TO HOME OR SELFCARE - Discharge Diagnoses (1) 39 weeks gestation of Status: Resolved (2) (normal spontaneous vaginal delivery) Status: Resolved Plan - Discharge Medications Prescriptions: Ferrous Sulfate [Feosol 325 MG tab] 325 mg PO BID #60 tablet Ibuprofen [Motrin 600 MG tab] 600 mg PO Q6H PRN #30 tablet PRN Reason: Pain, Mild (1-3) Vit-Fe Fumar-FA [ Vitamin] 1 tab PO QDAY #30 tablet - Provider Discharge Summary Activity: routine, no sex for 6 weeks, no heavy lifting 4 weeks, no strenuous exercise Diet: routine Instructions: routine Additional instructions: [] Smoking cessation referral if applicable(refer to patient education folder for contact #) [] Refer to [facility]'s [facility] Booklet Call your doctor immediately for: * Fever > 100.5 * Heavy vaginal bleeding ( >1 pad per hour) * Severe persistent headache * Shortness of breath * Reddened, hot, painful area to leg or breast * Drainage or odor from incision. * Keep incision clean and dry at all times and follow doctor's instructions regarding bathing/showering - Follow up plan Follow up: FELIPE CHAWLA MD [Primary Care Provider] - 6 Weeks Forms: Discharge Signature Page
[2018-10-02 17:23] VITALS: BP 114/85
== END 2018-10-02 16:30 | disposition home or self-care (01) | DRG 775 ==
LOC: TRG 15:01 → LD 15:48 → OB 09-30 10:54
PROVIDERS: ADMIT Obstetrics & Gynecology; ATTEND Obstetrics & Gynecology
PROC: 10E0XZZ Delivery of Products of Conception, External Approach (ICD-10-PCS; principal; 2018-09-30)
PROC: 3E0R3BZ Introduction of Anesthetic Agent into Spinal Canal, Percutaneous Approach (ICD-10-PCS; 2018-09-30)
PROC: 00HU33Z Insertion of Infusion Device into Spinal Canal, Percutaneous Approach (ICD-10-PCS; 2018-09-30)
PROC: 3E0234Z Introduction of Serum, Toxoid and Vaccine into Muscle, Percutaneous Approach (ICD-10-PCS; 2018-10-02)
DX: O90.81 Anemia of the puerperium (principal); D64.9 Anemia, unspecified; Z3A.39 39 weeks gestation of pregnancy; Z37.0 Single live birth; Z23 Encounter for immunization
CPT/HCPCS: 36415; 85014; 85018; 85027; 86592; 86850; 86900; 86901; 90471; G0378; J0290; J2590; J3010; J7120